=== PATIENT | female | born 1945 | race Caucasian/White ===

== ENCOUNTER 2017-10-17 15:45 | Inpatient (IN) ==
--- NOTE | 2017-10-17 16:03 | Emergency Department Note ---
Disposition Clinical Impression: Sinus pause Afib Qualifiers: Atrial fibrillation type: chronic Qualified Code(s): I48.2 - Chronic atrial fibrillation Chest pain Qualifiers: Chest pain type: unspecified Qualified Code(s): R07.9 - Chest pain, unspecified Disposition: Admitted As Inpatient Condition: Fair Referrals: Nathaniel Rodriguez DO [Primary Care Provider] - Forms: ED Satisfaction Letter Time of Disposition: 18:55 General Adult HPI - General Stated complaint: H/R Time Seen by Provider: 10/17/17 15:52 Source: patient Mode of arrival: EMS Limitations: no limitations Nursing Notes Reviewed: Yes Vital Signs Reviewed: Yes - History of Present Illness HPI Narrative: Female patient presenting to the emergency department complaining of feeling of a headache and that her heart was beating very fast. She has previously been on Cardizem however she states that it was for her blood pressure. Her heart rate came down significantly with that made her feel bad. She states it was running in the 50s. So she has been tapered off that over the past 3 months. She is now just taking lisinopril for blood pressure. She states she has no history of atrial fibrillation. She did have a heart catheter in January 2017 that was for any lesions that needed to be stented. She has no other history of PA. She does report a history of COPD and she is not on anticoagulation therapy other than aspirin daily. She does use a CPAP device at night for sleep apnea. She reports symptoms like this one week ago. She states that she was on her way to the hospital whenever they resolved so she went back home. She states that she does have a chest pressure associated with this. She initially stated that she had no symptoms however throughout my exam she states that she did have a heaviness sensation on the left side of her chest. No radiation. No associated shortness of breath. This all started after she was at home resting. She states that she is enjoying her day with no one else around. She denies any recent illnesses. States she has been eating and drinking appropriately. Does have a echocardiogram scheduled for this Monday. - Related Data Home Medications Medication Instructions Recorded Confirmed Diltiazem HCl [Diltiazem ER] 120 mg PO DAILY 11/23/15 01/18/17 Furosemide [Lasix] 20 mg PO 2XW 11/23/15 01/18/17 Potassium Chloride [Klor-Con 10] 10 meq PO 2XW 11/23/15 01/18/17 Tiotropium [Spiriva] 1 puff IH DAILY PRN 11/23/15 01/18/17 Aspirin [Lo-Dose Aspirin EC] 81 mg PO DAILY 01/18/17 01/18/17 Lisinopril [Zestril] 10 mg PO BID 01/18/17 01/18/17 Previous Rx's Medication Instructions Recorded Acetaminophen [Tylenol] 1,000 mg PO Q6HR PRN #0 tablet 12/14/15 Allergies Allergy/AdvReac Type Severity Reaction Status Date / Time No Known Allergies Allergy Verified 12/18/15 08:13 All systems ED: reviewed and negative except as stated. Review of Systems: As Per HPI Constitutional: Denies: fever Cardiovascular: Reports: chest pain (Pressure sensation to the left chest), palpitations. Denies: syncope Respiratory: Denies: cough, dyspnea Gastrointestinal: Denies: abdominal pain, nausea, vomiting, diarrhea Neurological: Reports: headache (Has resolved. Was associated with the elevated heart rate) Past Medical History - Past Medical History Attestation: Yes The following information was validated with the patient. Source: patient Medical history: Reports: asthma, COPD, GERD, hypertension Surgical history: Reports: appendectomy, hysterectomy, other Psychiatric history: Reports: no psych history, depression - Social History Smoking Status: Former smoker Smokeless Tobacco Status: No Alcohol use: Reports: none Drug use: Reports: none Physical Exam - General Limitations: no limitations General appearance: alert, in no apparent distress - Head Head exam: atraumatic, normocephalic, normal inspection - Eye Eye exam: Present: normal appearance, PERRL, EOMI - ENT ENT exam: normal exam, normal oropharynx, mucous membranes moist - Neck Neck exam: Present: normal inspection, full ROM, trachea midline - Chest Chest inspection: Present: normal inspection, symmetric chest wall rise - Respiratory Respiratory exam: Present: normal lung sounds bilaterally. Absent: respiratory distress, accessory muscle use - Cardiovascular Cardiovascular exam: Present: tachycardia, irregular rhythm, normal heart sounds - Abdominal Exam Abdominal exam: Present: soft, Non-Tender. Absent: tenderness, distention, guarding, rebound, rigidity, organomegaly - Extremities Exam Extremities exam: Present: normal inspection, full ROM, normal capillary refill. Absent: tenderness, pedal edema - Neurological Exam Neurological exam: Present: alert, oriented X3 - Psychiatric Psychiatric exam: Present: normal affect, normal mood - Skin Skin exam: Present: warm, dry, intact, normal color. Absent: rash, cyanosis, diaphoresis Course Course Narrative: Patient is in A. fib with RVR at this time. She did take a full dose aspirin prior to arrival here today. She does not appear to be in any distress. On initial exam she had no complaints however throughout my exam she states that she does have pressure sensation to the left chest. She does not appear to be in and wrist for distress. Lung tones are clear bilaterally. She has tachycardic on exam however. She did respond well to a Cardizem bolus. We will start dose her with by mouth Cardizem. We did do a chadsvasc score. She scored at a 3. This does recommend anticoagulation. We will continue workup on patient and admitted to the hospital. There are no signs of acute ischemia on her EKG. Patient is agreeable with admission at this time. Blood pressure has been stable throughout. - Reevaluation(s) Reevaluation #1: Was alerted by nursing staff that while they were in their having a discussion with the patient she said that she started to feel dizzy. They did notice a pars on the monitor. It does appears that the patient had approximally 6 second pause at that time. Repeat EKG was performed and showed the patient to still be in atrial fibrillation. We are awaiting callback from cardiology at this time. The patient did receive a Cardizem IV bolus as well as by mouth Cardizem. Patient's blood pressure is still within normal limits. Time: 17:35 Reevaluation #2: Patient has had several more sinus causes. Does appear that she is in a sinus rhythm at this time however. Her pressure has been staying normal with these pauses. With the patient. She has no complaints currently. She is cheerful and in good spirits. We did discuss CODE STATUS. She is requesting to be at this time. However she did express a desire to not be on long-term ventilation. We have started heparin. I did discuss any bleeding issues with her and she states she has no history of any kind of bleeding disorders or GI bleeds. - Consultations Consultation #1: I did talk to Dr. Camarillo on the phone. We discussed the patient's positives as well as her new onset A. fib. She states that she will discuss the case with the on-call interventionalists and give us a call back. She did recommend to go ahead and heparinize the patient. We have placed this order. Time: 18:00 Consultation #2: Exercise a call back. She is still requesting the patient be heparinized. She states that she will allow the Cardizem to wear off tonight and have the patient observed in either to North or ICU setting. Talk to Dr. Michaela Lara. They are both aware that the patient is here. They state that they will have the patient seen tomorrow after observing tonight with a possible pacemaker placed. Time: 18:19 Consultation #3: Dr Uribe accepted Pt in stable condition. Time: 18:54 Vital Signs Temperature 97.1 F L 10/17/17 15:58 Pulse Rate 157 10/17/17 15:58 Respiratory Rate 18 10/17/17 15:58 Blood Pressure 150/102 10/17/17 15:58 O2 Sat by Pulse Oximetry 98 10/17/17 15:58 Temperature 97.1 F L 10/17/17 15:58 Pulse Rate 57 10/17/17 18:53 Respiratory Rate 18 10/17/17 18:53 Blood Pressure 156/84 10/17/17 18:53 O2 Sat by Pulse Oximetry 100 10/17/17 18:53 Oxygen Delivery Oxygen Delivery Nasal Cannula Medical Decision Making - Medical Records Medical records reviewed: Yes I reviewed the patient's medical records. - Lab Data Lab results reviewed: Yes I reviewed the patient's lab results. Result diagrams: 10/17/17 18:12 10/17/17 16:04 Lab Results 10/17/17 10/17/17 10/17/17 Range/Units 16:04 16:04 16:04 WBC 7.8 (4.3-11.1) K/mcL RBC 4.97 (3.82-4.97) M/mcL Hgb 13.4 (11.5-15.4) g/dL Hct 41.7 (35.3-44.9) % MCV 83.9 (83.0-100.0) fL MCH 27.0 L (28.0-33.3) pg MCHC 32.1 (31.6-35.5) g/dL RDW 13.6 (11.5-14.5) % Plt Count 177 (140-400) K/mcL MPV 11.2 (9.4-12.4) fL Immature Gran % 0.3 (0-4) % Seg Neutrophils % 55.2 % Lymphocytes % 34.8 % Monocytes % 7.6 % Eosinophils % 1.2 % Basophils % 0.9 % Neutrophils # 4.3 (1.6-8.9) K/mcL Lymphocytes # 2.7 (0.6-4.6) K/mcL Monocytes # 0.6 (0.0-1.3) K/mcL Eosinophils # 0.1 (0.0-0.6) K/mcL Basophils # 0.1 (0.0-0.2) K/mcL PT 11.8 (9.4-12.1) Seconds INR 1.0 APTT 38.9 H (26.0-36.0) Seconds Heparin Anti-Xa, Unfract (0.30-0.70) IU/mL Sodium 143 (136-145) mEq/L Potassium 3.9 (3.5-5.1) mEq/L Chloride 108 H (98-107) mEq/L Carbon Dioxide 30 H (23-29) mEq/L BUN 10 (8-23) mg/dL Creatinine 0.54 L (0.60-1.20) mg/dL Est GFR ( Amer) > 60 (> 60) Est GFR (Non-Af Amer) > 60 (> 60) BUN/Creatinine Ratio 19 (6-26) Glucose 90 (70-105) mg/dL Calculated Osmolality 295 (280-300) Calcium 9.1 (8.6-10.3) mg/dL Troponin I < 0.03 (< 0.04) ng/mL TSH 1.990 (0.340-5.600) mcIU/mL 10/17/17 10/17/17 Range/Units 18:12 18:12 WBC 9.2 (4.3-11.1) K/mcL RBC 5.00 H (3.82-4.97) M/mcL Hgb 13.7 (11.5-15.4) g/dL Hct 42.4 (35.3-44.9) % MCV 84.8 (83.0-100.0) fL MCH 27.4 L (28.0-33.3) pg MCHC 32.3 (31.6-35.5) g/dL RDW 13.4 (11.5-14.5) % Plt Count 177 (140-400) K/mcL MPV 11.2 (9.4-12.4) fL Immature Gran % (0-4) % Seg Neutrophils % % Lymphocytes % % Monocytes % % Eosinophils % % Basophils % % Neutrophils # (1.6-8.9) K/mcL Lymphocytes # (0.6-4.6) K/mcL Monocytes # (0.0-1.3) K/mcL Eosinophils # (0.0-0.6) K/mcL Basophils # (0.0-0.2) K/mcL PT 11.8 (9.4-12.1) Seconds INR 1.0 APTT (26.0-36.0) Seconds Heparin Anti-Xa, Unfract 0.02 L (0.30-0.70) IU/mL Sodium (136-145) mEq/L Potassium (3.5-5.1) mEq/L Chloride (98-107) mEq/L Carbon Dioxide (23-29) mEq/L BUN (8-23) mg/dL Creatinine (0.60-1.20) mg/dL Est GFR ( Amer) (> 60) Est GFR (Non-Af Amer) (> 60) BUN/Creatinine Ratio (6-26) Glucose (70-105) mg/dL Calculated Osmolality (280-300) Calcium (8.6-10.3) mg/dL Troponin I (< 0.04) ng/mL TSH (0.340-5.600) mcIU/mL - Radiology Data Radiology results reviewed: Yes I reviewed the patient's radiology results. I did review the patient's x-ray and agree with the radiology read. The patient does have an opacification on the right hilar area that was on previously chest x-rays as well. Chest X-Ray 10/17/17 16:04 IMPRESSION: 1.Cardiomegaly with mild vascular congestion. D/ / Niels Dillard MD / Niels Dillard MD Interpreting Provider: Niels Dillard MD - EKG Data EKG #1 EKG attestation: Yes I reviewed and interpreted this EKG. EKG results narrative: A. fib with RVR at a rate of 165. MO interval was not measured. QRS duration is 155. QT is 307. QTC is 509. Good R-wave progression. Patient does have some ST depressions in lead V2 V4 and V5. EKG #2 EKG attestation: Yes I reviewed and interpreted this EKG. EKG results narrative: Repeat EKG time 1648. A. fib at a rate of 107. QRS duration is 103. QT is 355. QTC is 474. Patient does have some mild ST depression in lead V4 and V5. No signs of acute ischemia. EKG #3 EKG attestation: Yes I reviewed and interpreted this EKG. EKG results narrative: EKG timed 1754. Patient is now in a sinus bradycardia at a rate of 56. MO interval is 159. QRS duration is 97. QT is 4:30. QTC is 389. No signs of ischemia. Attestation Statement - Attestation Attestation: I, Adalberto Castillo DO, examined this patient [id number] and my medical decision-making was reviewed with Dr. Hayley Knox, Resident Physician. I agree with the documented findings, disposition and treatment plan as described except to the extent set forth below. Please see my progress notes for details.
[2017-10-17] MEDS ORDERED: 0.9 % Sodium Chloride 500 ML IVC ONE (16:24)
[2017-10-17 16:45] LABS: Basophils # 0.1 K/mcL (0.0-0.2); Basophils % 0.9 %; Eosinophils # 0.1 K/mcL (0.0-0.6); Eosinophils % 1.2 %; Hematocrit 41.7 % (35.3-44.9); Hemoglobin 13.4 g/dL (11.5-15.4); Immature Granulocytes % 0.3 % (0-4); Lymphocytes # 2.7 K/mcL (0.6-4.6); Lymphocytes % 34.8 %; Mean Corpuscular HGB Conc 32.1 g/dL (31.6-35.5); Mean Corpuscular Volume 83.9 fL (83.0-100.0); Mean Platelet Volume 11.2 fL (9.4-12.4); Monocytes # 0.6 K/mcL (0.0-1.3); Monocytes % 7.6 %; Neutrophils # 4.3 K/mcL (1.6-8.9); Platelet Count 177 K/mcL (140-400); Red Blood Count 4.97 M/mcL (3.82-4.97); Red Cell Distribution Width 13.6 % (11.5-14.5); Segmented Neutrophils % 55.2 %
[2017-10-17] MEDS ORDERED: Diltiazem CD (24hr) 120 MG CAPSULE PO STA (16:45)
[2017-10-17 16:51] LABS: Prothrombin Time 11.8 Seconds (9.4-12.1)
[2017-10-17 16:54] LABS: Activated Partial Thrombo Time 38.9 Seconds (26.0-36.0)
[2017-10-17 17:04] LABS: BUN/Creatinine Ratio 19 (6-26); Blood Urea Nitrogen 10 mg/dL (8-23); Calcium 9.1 mg/dL (8.6-10.3); Carbon Dioxide 30 mEq/L (23-29); Chloride 108 mEq/L (98-107); Glucose 90 mg/dL (70-105); Osmolality,Calculated 295 (280-300); Potassium 3.9 mEq/L (3.5-5.1); Sodium 143 mEq/L (136-145); Troponin I < 0.03 ng/mL (< 0.04); eGFR For Non-African Americans > 60 (> 60)
--- NOTE | 2017-10-17 17:31 | Emergency Department Note ---
Disposition Clinical Impression: Sinus pause Afib Qualifiers: Atrial fibrillation type: chronic Qualified Code(s): I48.2 - Chronic atrial fibrillation Chest pain Qualifiers: Chest pain type: unspecified Qualified Code(s): R07.9 - Chest pain, unspecified Disposition: Admitted As Inpatient Condition: Fair Referrals: Nathaniel Rodriguez DO [Primary Care Provider] - Forms: ED Satisfaction Letter Time of Disposition: 18:58 General Adult HPI - General Chief complaint: ED Recheck/Abnormal Lab/Rx Stated complaint: H/R Time Seen by Provider: 10/17/17 15:52 Source: patient Mode of arrival: EMS Limitations: no limitations - History of Present Illness Pain Scale: 0 - Related Data Home Medications Medication Instructions Recorded Confirmed Diltiazem HCl [Diltiazem ER] 120 mg PO DAILY 11/23/15 01/18/17 Furosemide [Lasix] 20 mg PO 2XW 11/23/15 01/18/17 Potassium Chloride [Klor-Con 10] 10 meq PO 2XW 11/23/15 01/18/17 Tiotropium [Spiriva] 1 puff IH DAILY PRN 11/23/15 01/18/17 Aspirin [Lo-Dose Aspirin EC] 81 mg PO DAILY 01/18/17 01/18/17 Lisinopril [Zestril] 10 mg PO BID 01/18/17 01/18/17 Previous Rx's Medication Instructions Recorded Acetaminophen [Tylenol] 1,000 mg PO Q6HR PRN #0 tablet 12/14/15 Allergies Allergy/AdvReac Type Severity Reaction Status Date / Time No Known Allergies Allergy Verified 12/18/15 08:13 Constitutional: Denies: fever Cardiovascular: Reports: chest pain (Pressure sensation to the left chest), palpitations. Denies: syncope Respiratory: Denies: cough, dyspnea Gastrointestinal: Denies: abdominal pain, nausea, vomiting, diarrhea Neurological: Reports: headache (Has resolved. Was associated with the elevated heart rate) Past Medical History - Past Medical History Medical history: Reports: asthma, COPD, GERD, hypertension Surgical history: Reports: appendectomy, hysterectomy, other Psychiatric history: Reports: no psych history, depression - Social History Smoking Status: Former smoker Smokeless Tobacco Status: No Alcohol use: Reports: none Drug use: Reports: none Physical Exam - General Limitations: no limitations General appearance: alert, in no apparent distress Course Vital Signs Temperature 97.1 F L 10/17/17 15:58 Pulse Rate 157 10/17/17 15:58 Respiratory Rate 18 10/17/17 15:58 Blood Pressure 150/102 10/17/17 15:58 O2 Sat by Pulse Oximetry 98 10/17/17 15:58 Temperature 97.1 F L 10/17/17 15:58 Pulse Rate 57 10/17/17 18:53 Respiratory Rate 18 10/17/17 18:53 Blood Pressure 156/84 10/17/17 18:53 O2 Sat by Pulse Oximetry 100 10/17/17 18:53 Oxygen Delivery Oxygen Delivery Nasal Cannula Medical Decision Making - Lab Data Result diagrams: 10/17/17 18:12 10/17/17 16:04 Lab Results 10/17/17 10/17/17 10/17/17 Range/Units 16:04 16:04 16:04 WBC 7.8 (4.3-11.1) K/mcL RBC 4.97 (3.82-4.97) M/mcL Hgb 13.4 (11.5-15.4) g/dL Hct 41.7 (35.3-44.9) % MCV 83.9 (83.0-100.0) fL MCH 27.0 L (28.0-33.3) pg MCHC 32.1 (31.6-35.5) g/dL RDW 13.6 (11.5-14.5) % Plt Count 177 (140-400) K/mcL MPV 11.2 (9.4-12.4) fL Immature Gran % 0.3 (0-4) % Seg Neutrophils % 55.2 % Lymphocytes % 34.8 % Monocytes % 7.6 % Eosinophils % 1.2 % Basophils % 0.9 % Neutrophils # 4.3 (1.6-8.9) K/mcL Lymphocytes # 2.7 (0.6-4.6) K/mcL Monocytes # 0.6 (0.0-1.3) K/mcL Eosinophils # 0.1 (0.0-0.6) K/mcL Basophils # 0.1 (0.0-0.2) K/mcL PT 11.8 (9.4-12.1) Seconds INR 1.0 APTT 38.9 H (26.0-36.0) Seconds Heparin Anti-Xa, Unfract (0.30-0.70) IU/mL Sodium 143 (136-145) mEq/L Potassium 3.9 (3.5-5.1) mEq/L Chloride 108 H (98-107) mEq/L Carbon Dioxide 30 H (23-29) mEq/L BUN 10 (8-23) mg/dL Creatinine 0.54 L (0.60-1.20) mg/dL Est GFR ( Amer) > 60 (> 60) Est GFR (Non-Af Amer) > 60 (> 60) BUN/Creatinine Ratio 19 (6-26) Glucose 90 (70-105) mg/dL Calculated Osmolality 295 (280-300) Calcium 9.1 (8.6-10.3) mg/dL Troponin I < 0.03 (< 0.04) ng/mL TSH 1.990 (0.340-5.600) mcIU/mL 10/17/17 10/17/17 Range/Units 18:12 18:12 WBC 9.2 (4.3-11.1) K/mcL RBC 5.00 H (3.82-4.97) M/mcL Hgb 13.7 (11.5-15.4) g/dL Hct 42.4 (35.3-44.9) % MCV 84.8 (83.0-100.0) fL MCH 27.4 L (28.0-33.3) pg MCHC 32.3 (31.6-35.5) g/dL RDW 13.4 (11.5-14.5) % Plt Count 177 (140-400) K/mcL MPV 11.2 (9.4-12.4) fL Immature Gran % (0-4) % Seg Neutrophils % % Lymphocytes % % Monocytes % % Eosinophils % % Basophils % % Neutrophils # (1.6-8.9) K/mcL Lymphocytes # (0.6-4.6) K/mcL Monocytes # (0.0-1.3) K/mcL Eosinophils # (0.0-0.6) K/mcL Basophils # (0.0-0.2) K/mcL PT 11.8 (9.4-12.1) Seconds INR 1.0 APTT (26.0-36.0) Seconds Heparin Anti-Xa, Unfract 0.02 L (0.30-0.70) IU/mL Sodium (136-145) mEq/L Potassium (3.5-5.1) mEq/L Chloride (98-107) mEq/L Carbon Dioxide (23-29) mEq/L BUN (8-23) mg/dL Creatinine (0.60-1.20) mg/dL Est GFR ( Amer) (> 60) Est GFR (Non-Af Amer) (> 60) BUN/Creatinine Ratio (6-26) Glucose (70-105) mg/dL Calculated Osmolality (280-300) Calcium (8.6-10.3) mg/dL Troponin I (< 0.04) ng/mL TSH (0.340-5.600) mcIU/mL Critical Care Time Critical Care Time: Yes Total Critical Care Time: 45 Attestation: Critical care performed: Time is exclusive of separately billable procedures. Time includes: direct patient care, patient reassessment, coordination of patient care, interpretation of data (laboratory data, radiology data, and respiratory data), review of patient's medical records, medical consultation and documentation of patient care. Procedures included in critical care time: Procedures excluded from critical care time: Attestation Statement - Attestation Attestation: I, Adalberto Castillo DO, examined this patient [id number] and my medical decision-making was reviewed with Dr. Hayley Knox, Resident Physician. I agree with the documented findings, disposition and treatment plan as described except to the extent set forth below. Please see my progress notes for details. 72-year-old female presents emergency room with complaint of palpitations and blood pressure abnormality. Patient was at home said that she is feeling abnormal so she checked her blood pressure and noticed that the numbers were very close together and she is concerned about a possible stroke. She remembers being told that when she was younger. She denies any neurologic symptoms or complaints. She has no chest pain and intermittent shortness of breath denies any nausea vomiting or diarrhea. Denies any fevers or chills. She has not had any medication changes or other issues here recently. Patient is scheduled to have an echocardiogram completed this Monday for unknown cardiac related issue at this time. Vital signs otherwise unremarkable as the patient does have tachycardia on exam. EKG is consistent with atrial fibrillation with rapid ventricular response. Patient's heart rate will be addressed. Blood pressure is otherwise stable. Lungs are clear to auscultation heart is regular abdomen is soft nontender nondistended with no guarding no rigidity no peritoneal symptoms. She is alert she is she speaks in full sentences. On my evaluation at the bedside, the patient is requesting to be discharged home in the care of the . A lengthy discussion about concerns with the cardiac related abnormality as well as a regular rhythm that were noted on initial presentation. Patient has now accommodating for workup and evaluation here in the emergency room then will determine disposition. There is concern for a requirement of anticoagulation and possibility of new onset A. fib considering the patient does not have any specific history of atrial fibrillation. Patient is otherwise hemodynamically stable and in no distress disposition will be determined once full workup treatment course have been established. See detailed documentation the physical exam, medical intervention, medical decision-making and disposition in the resident physician' s note. Critical care by the patient's treatment course at this time. 1745 Patient has had 2 episodes approximate 6-10 second pauses of cardiac rhythm. On the second event the patient converted into sinus bradycardia. Cardiology was contacted for recommendations patient will require admission for currently there is no acute etiology to be the source to the symptoms of this time. Patient had the pacer pads applied to the chest wall and atropine was ordered to the bedside. Disposition will be admission once treatment course has been established. 1845 Detailed workup completed. Consultation with cardiology as well as the hospitals established. Recommendation for heparin drip and admission process were discussed and reviewed with the hospitalist about any other question or concern. Patient will be admitted for definitive management.
[2017-10-17] MEDS ORDERED: *HR* Heparin 5,000 UNIT/ML VIAL IVP ONE (17:54)
[2017-10-17] MEDS ORDERED: *HR* Heparin 5,000 UNIT/ML VIAL IVP PRN ×4 (17:54→21:51)
[2017-10-17] MEDS ORDERED: *HR* Atropine Sulfate 1 MG/10 ML SYRINGE ONE (17:55)
[2017-10-17] MEDS ORDERED: Heparin 25,000 UNIT/500 ML D5W 25,000 UNIT/500 ML BAG IVC SCH (18:00)
[2017-10-17 18:22] LABS: Hematocrit 42.4 % (35.3-44.9); Hemoglobin 13.7 g/dL (11.5-15.4); Mean Corpuscular HGB Conc 32.3 g/dL (31.6-35.5); Mean Corpuscular Hemoglobin 27.4 pg (28.0-33.3); Mean Corpuscular Volume 84.8 fL (83.0-100.0); Mean Platelet Volume 11.2 fL (9.4-12.4); Platelet Count 177 K/mcL (140-400); Red Cell Distribution Width 13.4 % (11.5-14.5)
[2017-10-17 18:28] LABS: Heparin anti-factor XA UFH 0.02 IU/mL (0.30-0.70)
[2017-10-17 18:29] LABS: Prothrombin Time 11.8 Seconds (9.4-12.1)
--- NOTE | 2017-10-17 19:29 | Internal Med History&Physical ---
<Lenny Russell - Last Filed: 10/17/17 21:45> Date of Encounter: 10/17/17 Time of Encounter: 19:26 Internal Medicine - H&P: HPI Chief complaint: Palpitations Admitted From: Home Plans for Post Hospital Care: Home History of present illness: Ms. Grove is a 72 year old female with a PMH of sinus bradycardia, hypertension, HLD, COPD, GERD, and DAYLIN who presented to the ED due to palpitations and headache. Patient reported her BP was 150/79 at home and her HR is usually in the 50s. Patient reports occasional chest pressure but denies fevers, chills, shortness of breath, nausea, vomiting, diarrhea, melena, or any recent medication changes. Patient does not have a history of atrial fibrillation. She reports being on Diltiazem in the past which caused episodes of worsening bradycardia to the point that "it almost killed her". In the ED, her EKG revealed atrial fibrillation with rapid ventricular response. Patient was treated with PO and IV Cardizem and had two episodes approximate 6-10 second pauses on telemetry. During the second event, the patient converted into sinus bradycardia. Cardiology was contacted, who recommended admission to determine the underlying etiology and anticoagulating on Heparin drip. Of note, patient was previously scheduled to have an echocardiogram completed on Monday for history of sinus bradycardia. Patient had pacer pads applied to her chest in the ED and Atropine was ordered to the bedside. Past Med Surg Social Fam HX - Past Medical History Medical history: asthma, COPD, GERD, hyperlipidemia, hypertension, other (DAYLIN on CPAP) Psychiatric history: no psych history, depression - Past Surgical History Surgical History: appendectomy, hysterectomy, other Additional surgical history: t&A. appy. bladder tuck. hysterectomy. Cardiac Cath. by Dr. Sandy Walters. LMCA is free of disease. LAD shows 25% stenosis in the Mid LAD. Distal Circumflex 40% Stenosis. RCA 25% Stenosis. 01/18/2017 - Social History Smoking Status: Former smoker Smokeless Tobacco Status: No Alcohol use: none Drug use: none - Family History Father Living Status: Hx Family Cardiac Disorders: Yes Mother Living Status: Cause of : PNA Brother Living Status: Hx Family Cardiac Disorders: Yes Hx Family Cancer: Yes (Colon) Sister Living Status: Hx Family Cardiac Disorders: Yes (MO) Hx Family Endocrine Disorder: Yes (DM) Hx Family Neurologic Disorders: Yes (CVA) Hx Family Medical Disorders: Yes (Renal failure) Son Hx Family Cardiac Disorders: Yes (HTN) Internal Medicine - H&P: Meds Furosemide [Lasix] 20 mg PO 2XW 11/23/15 [History] Potassium Chloride [Klor-Con 10] 10 meq PO 2XW 11/23/15 [History] Aspirin [Lo-Dose Aspirin EC] 81 mg PO DAILY 01/18/17 [History] Lisinopril [Zestril] 10 mg PO BID 01/18/17 [History] Albuterol Sulfate [Proair Hfa] 2 puff IH BID PRN 10/17/17 [History] Cholecalciferol (D-3) [Vitamin D] 2,000 unit PO DAILY 10/17/17 [History] Cyanocobalamin (Vitamin B-12) [Vitamin B12] 1,000 mcg PO QWEEK 10/17/17 [History ] Montelukast [Singulair] 10 mg PO DAILY 10/17/17 [History] 3 Allergy/AdvReac Type Severity Reaction Status Date / Time diltiazem AdvReac See Verified 10/17/17 19:34 Comments All Systems PM: A 10-system review of systems was performed and is negative for pertinent findings except as documented above in the HPI. - Constitutional Constitutional: fatigue, malaise, weakness, no chills, no fever(s), no lethargy , no weight gain, no weight loss - EENT Eyes: no blurry vision, no change in vision Nose, mouth and throat: no neck pain, no sinus pain, no sore throat - Cardiovascular Cardiovascular ROS IM: chest pain, irregular heart rhythm, palpitations, no diaphoresis, no dyspnea, no edema, no lightheadedness, no syncope - Respiratory Respiratory: no cough, no dyspnea, no wheezing - Gastrointestinal Gastrointestinal: heartburn, no abdominal pain, no constipation, no diarrhea, no nausea, no vomiting - Genitourinary Genitourinary: no dysuria, no urinary frequency, no urinary urgency - Musculoskeletal Musculoskeletal ROS IM: no back pain, no limited range of motion, no numbness, no tingling - Integumentary Integumentary IM: no erythema, no new lesions, no rash - Neurological Neurological ROS: headache(s), weakness, no confusion, no dizziness, no numbness , no tingling, no tremor(s) - Psychiatric Psychiatric: no anxiety, no depression - Endocrine Endocrine IM: no polydipsia, no polyphagia, no polyuria - Hematologic/Lymphatic Hematologic/Lymphatic: no easy bleeding, no easy bruising - Constitutional Vitals: Temp Pulse Resp BP Pulse Ox 97.1 F L 57 18 156/84 100 10/17/17 15:58 10/17/17 18:53 10/17/17 18:53 10/17/17 18:53 10/17/17 18:53 General appearance: Present: cooperative, A&O X 3, pleasant, obese, answers questions appropriately Exam: appears as stated age, conversant - Head Head exam: Present: atraumatic, normocephalic - Eye Eye exam: Present: EOMI, conjuntiva pink, sclera anicteric - ENT ENT exam: Present: mucous membranes moist, normal oropharynx - Neck Neck exam general surgery: Present: supple, trachea midline. Absent: lymphadenopathy - Respiratory Respiratory exam: Present: CTAB. Absent: accessory muscle use, rales, respiratory distress, rhonchi, wheezes - Cardiovascular Cardiovascular exam: Present: bradycardia, RRR, +S1, +S2. Absent: diastolic murmur, gallop, rubs, systolic murmur - GI/Abdominal GI/Abdominal exam: Present: normal bowel sounds, soft, no peritoneal signs. Absent: distended, guarding, hepatomegaly, tenderness - Extremities Exam Extremities exam: Present: normal capillary refill, normal inspection, warm, radial pulses palpable and symmetrical. Absent: calf tenderness, cyanotic, pedal edema - Back Exam Back exam: Present: normal inspection. Absent: paraspinal tenderness, tenderness - Neurological Exam Neurological exam: Present: CN II-XII intact, oriented X3, no focal deficits. Absent: pronater drift, facial droop, speech deficit - Psychiatric Psychiatric exam: Present: normal affect, normal mood - Skin Skin exam: Present: dry, intact, normal color, warm Internal Med - H&P Results - Labs CBC & Chem 7: 10/17/17 18:12 10/17/17 16:04 - Pulse Oximetry Interpretation Digit-Finger O2 Sat by Pulse Oximetry: 96 (On room air) - EKG Data -: EKG Interpreted by Myself (A-fib HR 165, ST depressions in lead V2 V4 and V5) - EKG Data Prior EKG available for review: yes When compared to previous EKG: there are significant changes (Repeat EKG shows sinus bradycardia HR 56, R interval is 159. QRS duration is 97. QT is 4:30. QTC is 389. No signs of ischemia) - Impressions Impressions Chest X-Ray 10/17/17 16:04 IMPRESSION: 1.Cardiomegaly with mild vascular congestion. D/ / Niels Dillard MD / Niels Dillard MD Interpreting Provider: Niels Dillard MD - Assessment and plan (1) Atrial fibrillation with RVR Current Visit: Yes Status: Resolved Assessment and plan: New onset A. fib, patient does not have a history of atrial fibrillation. In the ED, her EKG revealed atrial fibrillation with rapid ventricular response. Patient was treated with PO and IV Cardizem CHADS-VASc Score 3 (Female, Age 72, and HTN) Patient was started on Heparin drip Consider changing to Coumadin or starting NOAC Echo pending Cardiac Cath. by Dr. Walters 01/18/2017 revealed LMCA is free of disease, LAD shows 25% stenosis in the Mid LAD, Distal Circumflex 40% Stenosis, RCA 25% Stenosis. Cardiology consulted (2) Sinus pause Current Visit: Yes Status: Acute Assessment and plan: In the ED, EKG revealed atrial fibrillation with rapid ventricular response. Patient was treated with PO and IV Cardizem and had two episodes approximate 6- 10 second pauses on telemetry. During the second event, the patient converted into sinus bradycardia. Cardiology was contacted by ED physician, who recommended admission for further evaluation. Initial troponin negative, trend serial troponins Echo pending, patient was previously scheduled to have an echocardiogram completed on Monday for history of sinus bradycardia. Patient had pacer pads applied to her chest in the ED and Atropine was ordered to the bedside. Cardiology consulted (3) HTN (hypertension) Current Visit: Yes Status: Chronic Assessment and plan: Patient takes Lisinopril 10mg BID and Lasix 20mg at home Unable to start beta delfino due to bradycardia Cardiology consulted Qualifiers: Hypertension type: essential hypertension Qualified Code(s): I10 - Essential (primary) hypertension (4) HLD (hyperlipidemia) Current Visit: Yes Status: Chronic Assessment and plan: Lipid panel 09/23/17 revealed chol 198, LDL 117, HDL 67, chol/HDL ratio 3 Based patient's age and calculated risk for heart disease or stroke 25.7%, the ACC/AHA guidelines suggest she should be on a moderate to high intensity statin. Start Atorvastatin 40mg PO qHS Qualifiers: Hyperlipidemia type: unspecified Qualified Code(s): E78.5 - Hyperlipidemia , unspecified (5) DAYLIN on CPAP Current Visit: Yes Status: Chronic Assessment and plan: Continue CPAP qHS (6) Obesity (BMI 30.0-34.9) Current Visit: Yes Status: Chronic Assessment and plan: BMI 33.5, Lifestyle modification (7) DVT prophylaxis Current Visit: Yes Status: Acute Assessment and plan: Patient was started on Heparin drip Consider changing to Coumadin or starting NOAC (8) COPD (chronic obstructive pulmonary disease) Current Visit: No Status: Chronic Assessment and plan: Not in acute exacerbation Patient quit smoking 20 years ago Continue home bronchodilators She is scheduled for outpatient PFTs Qualifiers: COPD type: unspecified COPD Qualified Code(s): J44.9 - Chronic obstructive pulmonary disease, unspecified - Time Spent With Patient Total time spent is greater than 50% in coordination of care (as documented) at patient's floor/unit and/or counseling patient: <Farideh Mena - Last Filed: 10/17/17 22:20> Date of Encounter: 10/17/17 Internal Medicine - H&P: HPI History of present illness: Ms. Grove is a 72 year old female All Systems PM: A 10-system review of systems was performed and is negative for pertinent findings except as documented above in the HPI. - Constitutional Vitals: Temp Pulse Resp BP Pulse Ox 97.9 F 54 18 152/79 96 10/17/17 19:50 10/17/17 22:00 10/17/17 22:00 10/17/17 21:06 10/17/17 22:00 Internal Med - H&P Results - Labs CBC & Chem 7: 10/17/17 18:12 10/17/17 16:04 Labs: Cardiac Enzymes 10/17/17 Range/Units 21:10 Troponin I 0.03 (< 0.04) ng/mL - Assessment and plan (1) Sinus pause Current Visit: Yes Status: Acute (2) Atrial fibrillation with RVR Current Visit: Yes Status: Resolved (3) HTN (hypertension) Current Visit: Yes Status: Chronic Qualifiers: Hypertension type: essential hypertension Qualified Code(s): I10 - Essential (primary) hypertension (4) Obesity (BMI 30.0-34.9) Current Visit: Yes Status: Chronic (5) DVT prophylaxis Current Visit: Yes Status: Acute (6) DAYLIN on CPAP Current Visit: Yes Status: Chronic (7) HLD (hyperlipidemia) Current Visit: Yes Status: Chronic Qualifiers: Hyperlipidemia type: unspecified Qualified Code(s): E78.5 - Hyperlipidemia , unspecified (8) COPD (chronic obstructive pulmonary disease) Current Visit: No Status: Chronic Qualifiers: COPD type: unspecified COPD Qualified Code(s): J44.9 - Chronic obstructive pulmonary disease, unspecified - Time Spent With Patient Total time spent is greater than 50% in coordination of care (as documented) at patient's floor/unit and/or counseling patient: - Attending Attestation [place] Jeanette Grove is a 72 burt old woman with a history of HTN, HLD, DM, pHTN and DAYLIN who presents to the ER with the complaint of sudden onset of palpitations and headache this afternoon. She thought she was having a stroke and checked her BP saying it was high and her heart rate was in the 150s. On arrival here she was seen to be in a.fib with RVR. She was given 15mg IVP of diltiazem followed by 120mg PO dose. She was then seen to become bradycardic and developed 6-10 second sinus pauses. Pacer pads were placed, cardiology consulted and is admitted for evaluation. On my assessment the patient was in no acute distress, stating that she feels well and her complaints have subsided. She states to me that a year ago she was prescribed diltiazem and it made her extremely bradycardic so it was discontinued and never took it since. She denies knowledge of a.fib in the past. Physical exam remarkable for a well-developed white woman laying comfortably in bed. Normal s1/s2 and no murmurs or gallop rhythm. No peripheral edema. Pulses present and synchronic. No pulse deficit. CXR reviewed independently by me and showing mild perihilar congestion. Will manage as new onset atrial fibrillation; continue heparin gtt ([id number]- Vasc score 3). Monitor on telemetry. Obtain another set of troponins and check BNP. Sinus pauses; likely due to effect of diltiazem as the patient has experienced this in the past suggesting a hypersusceptibility to the drug. Will ensure her HR stays above 40 and activate pacing if it goes below; will administer IV calcium if needed. Should get another echo in the morning and cardio evaluation. Old records reviewed showed a normal EF on TTE from December 2016 and a cardiac cath showing: LMCA angiographically free of disease, 25% LAD stenosis, 40% distal Cx stenosis and 25% mid RCA disease. CPAP ordered qhs for DAYLIN.
[2017-10-17] MEDS ORDERED: Naloxone 0.4 MG/ML INJ IVP PRN (20:42)
[2017-10-17] MEDS ORDERED: Ondansetron 4 MG/2 ML VIAL IVP PRN ×2 (20:42→21:51)
[2017-10-17] MEDS ORDERED: Acetaminophen 325 MG TABLET PO PRN ×2 (20:42→21:51)
[2017-10-17] MEDS ORDERED: Ipratropium/Albuterol Neb 3 ML IH PRN ×2 (20:53→21:51)
[2017-10-17] MEDS ORDERED: *HR* Atropine Sulfate 1 MG/10 ML SYRINGE IVP PRN ×2 (21:12→21:51)
[2017-10-17] MEDS ORDERED: Cyanocobalamin (B-12) 1,000 MCG TABLET PO SCH ×2 (21:15→21:51)
[2017-10-17 21:42] LABS: Magnesium 2.1 mg/dL (1.6-2.6)
[2017-10-17 21:50] LABS: Troponin I 0.03 ng/mL (< 0.04)
[2017-10-17] MEDS: Heparin 25,000 UNIT/500 ML D5W 25,000 UNIT/500 ML BAG IVC SCH (22:07)
[2017-10-18 03:10] LABS: Hematocrit 38.5 % (35.3-44.9); Hemoglobin 12.3 g/dL (11.5-15.4); Mean Corpuscular HGB Conc 31.9 g/dL (31.6-35.5); Mean Corpuscular Hemoglobin 26.9 pg (28.0-33.3); Mean Corpuscular Volume 84.1 fL (83.0-100.0); Mean Platelet Volume 11.4 fL (9.4-12.4); Platelet Count 163 K/mcL (140-400); Red Blood Count 4.58 M/mcL (3.82-4.97); Red Cell Distribution Width 13.8 % (11.5-14.5)
[2017-10-18 03:38] LABS: BUN/Creatinine Ratio 20 (6-26); Blood Urea Nitrogen 10 mg/dL (8-23); Calcium 8.8 mg/dL (8.6-10.3); Carbon Dioxide 25 mEq/L (23-29); Chloride 110 mEq/L (98-107); Glucose 102 mg/dL (70-105); Osmolality,Calculated 293 (280-300); Potassium 3.9 mEq/L (3.5-5.1); Sodium 142 mEq/L (136-145); eGFR For Non-African Americans > 60 (> 60)
[2017-10-18] MEDS: Cholecalciferol (D-3) 1,000 UNIT TABLET PO SCH (08:02)
[2017-10-18] MEDS: Aspirin Enteric Coated 81 MG Tablet PO SCH (08:03)
[2017-10-18] MEDS ORDERED: Aspirin Enteric Coated 81 MG Tablet PO SCH (09:00)
[2017-10-18] MEDS ORDERED: Cholecalciferol (D-3) 1,000 UNIT TABLET PO SCH (09:00)
--- NOTE | 2017-10-18 09:16 | Electrocardiograph Report ---
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
--- NOTE | 2017-10-18 09:20 | Electrocardiograph Report ---
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
--- NOTE | 2017-10-18 09:21 | Electrocardiograph Report ---
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
--- NOTE | 2017-10-18 09:23 | Electrocardiograph Report ---
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
[2017-10-18] MEDS ORDERED: CeFAZolin Syr 2,000MG/20 ML 2,000 MG/20 ML SYRINGE IVPB ONE (11:35)
--- NOTE | 2017-10-18 12:28 | Cardiology Consult Note ---
Date of Encounter: 10/18/17 Time of Encounter: 10:00 Assessment and Plan (1) Tachy-humaira syndrome Current Visit: Yes Status: Acute Patient with newly diagnosed afib,- she might have been in paroxysmal afib for at least a month, maybe longer. Admitted to ICU with rapid ventricular response , now in sinus bradycardia following 6.8s symptomatic conversion pause. Her feelings of fatigue may have been due to afib, and lightheadedness from a sick sinus. She is a candidate for permanent pacemaker to allow for use of rate control medications for tachyarrhytmia. (2) Atrial fibrillation Current Visit: Yes Status: Acute Patient is currently rate controlled, infact, bradycardic. She will however need rate control medications after PPM implantation. Echo shows normal EF and no significant valvular heart disease. She can be placed on Cardizem 120mg daily upon dismissal to a target heart rate of 70-90/ min. Her [id number] score is 4, which translates to a stoke risk of 4.8% per year in >90,000 patients (in the [place] Atrial Fibrillation Cohort Study) and a 6.7 % risk of stroke TIA or systemic embolism. Her HAS-BLED score is 2 ( risk of major bleeding approx. 2/100 patient-years. In light of the foregoing, patient was counseled on the risk and benefits of oral anticoagulation and she stated that she would like to proceed with anticoagulation as she would never want to have a stroke. She understands the risk of bleeding with anticoagulation. We recommend chronic oral anticoagulation with apixaban 5mg bid once cleared by EP after PPM implantation. Meanwhile, continue IV heparin to therapeutic PTT till tomorrow morning- to be discontinued 4hrs prior to procedure. NPO after midnight. Qualifiers: Atrial fibrillation type: paroxysmal Qualified Code(s): I48.0 - Paroxysmal atrial fibrillation Discussion w patient/family: The assessment and plan as outlined above was discussed with the patient and/or family members who expressed understanding and agreement. All questions were answered. Thank you for involving us in the care of your patient. Please call with any questions. History of Present Illness Consult date: 10/18/17 History of present illness: Ms. Grove is a 72 year old pleasant female who presented to the ER with palpitations and found to have afib with RVR. She has a history of sleep apnea, hypertension, diabetes, and known palpitations on Cardizem.She states that she had an episode of fast heart rate about a month ago, but before she could present to the ER, she started feeling normal again. She however reports that she has been feeling more tired lately with occasional lightheadedness. She has not been formally diagnosed with afib before. In the ER she received cardizem 15mg IV and 120mg PO, afterwards she converted to sinus rhythm preceeded by a 6.8s pause and then 2.4s pause. She reports feeling dizzy during the pause. Howver she converted to sinus bradycardia with heart rates in the high 40s - low 50s Her last cardiology visit with Dr Walters was late in 2017 when she had an echocardiogram which is unremarkable with a preserved ejection fraction as well as a stress test showing no reversible ischemia with preserved ejection fraction. Holter monitor showed some runs of likely atrial tachycardia with a lowest heart rate of 45 and average of 80bpm She did receive coronary angiogram on 01/18/2017 which showed 25% stenosis in the Mid LAD. Distal Circumflex 40% Stenosis. RCA 25% Stenosis. Past Med Surg Social Fam HX - Past Medical History Medical history: asthma, COPD, GERD, hyperlipidemia, hypertension, other Psychiatric history: depression - Past Surgical History Surgical History: appendectomy, hysterectomy, other Additional surgical history: t&A. appy. bladder tuck. hysterectomy. Cardiac Cath. by Dr. Sandy Walters. LMCA is free of disease. LAD shows 25% stenosis in the Mid LAD. Distal Circumflex 40% Stenosis. RCA 25% Stenosis. 01/18/2017 - Social History Smoking Status: Former smoker Smokeless Tobacco Status: No Alcohol use: none Drug use: none - Family History Father Living Status: Hx Family Cardiac Disorders: Yes Mother Adopted: No Family Member Ethnicity: Non- Living Status: Cause of : aspiration from feeding tube. Brother Living Status: Hx Family Cardiac Disorders: Yes Hx Family Cancer: Yes (Colon) Sister Living Status: Hx Family Cardiac Disorders: Yes (MO) Hx Family Endocrine Disorder: Yes (DM) Hx Family Neurologic Disorders: Yes (CVA) Hx Family Medical Disorders: Yes (Renal failure) Son Hx Family Cardiac Disorders: Yes (HTN) Medications and Allergies Furosemide [Lasix] 20 mg PO 2XW 11/23/15 [History] Potassium Chloride [Klor-Con 10] 10 meq PO 2XW 11/23/15 [History] Aspirin [Lo-Dose Aspirin EC] 81 mg PO DAILY 01/18/17 [History] Lisinopril [Zestril] 10 mg PO BID 01/18/17 [History] Albuterol Sulfate [Proair Hfa] 2 puff IH BID PRN 10/17/17 [History] Cholecalciferol (D-3) [Vitamin D] 2,000 unit PO DAILY 10/17/17 [History] Cyanocobalamin (Vitamin B-12) [Vitamin B12] 1,000 mcg PO QWEEK 10/17/17 [History ] Montelukast [Singulair] 10 mg PO DAILY 10/17/17 [History] 3 Allergy/AdvReac Type Severity Reaction Status Date / Time diltiazem AdvReac See Verified 10/17/17 19:34 Comments All Systems Review: The remainder of the systems were reviewed and are negative - Constitutional Constitutional: no anorexia, no fever(s), no headache(s), no lethargy, no malaise, no night sweats - EENT Eyes: no blurred vision Nose, mouth and throat: no bleeding gums, no epistaxis, no odynophagia - Cardiovascular Cardiovascular: lightheadedness, slow heart rate, no chest pain at rest, no diaphoresis, no leg edema, no orthopnea, no syncope - Respiratory Respiratory: no cough, no dyspnea, no hemoptysis, no wheezing - Gastrointestinal Gastrointestinal: no abdominal pain - Musculoskeletal Musculoskeletal: no abnormal gait - Integumentary Integumentary: no unusual bruising - Neurological Neurological: dizziness, no abnormal speech, no loss of vision - Psychiatric Psychiatric: no anxiety - Hematological/Lymphatic Hematologic/Lymphatic: no easy bleeding Physical Examination General: Conversant, No Apparent Distress Neck: No JVD Cardiac: Reg Rate and Rhythm, Normal S1 and S2, No Murmur Lungs: Normal Breath Sounds, No Wheeze, Rales, Rhonchi Neuro: Alert and responsive, No focal deficits noted Abdomen: Soft, Non-Tender Skin: No rashes noted on visualized skin Extremities: No Edema Results 10/18/17 02:44 10/18/17 02:44 Lab Results 10/18/17 10/18/17 10/18/17 02:44 02:44 02:44 WBC 8.9 Hgb 12.3 Hct 38.5 Plt Count 163 Sodium 142 Potassium 3.9 Chloride 110 H Carbon Dioxide 25 BUN 10 Creatinine 0.51 L Glucose 102 Calcium 8.8 Troponin I < 0.03 Consult Discharge Plan - Plan Referrals: Nathaniel Rodriguez DO [Primary Care Provider] -
--- NOTE | 2017-10-18 14:52 | Electrophysiology Consult Note ---
<Chuck Castelan R - Last Filed: 10/18/17 15:39> Date of Encounter: 10/18/17 Time of Encounter: 14:50 Assessment and Plan (1) Tachy-humaira syndrome Current Visit: Yes Status: Acute Patient with newly diagnosed afib. Presented RVR, but historically sinus humaira unable to tolerate AV roderick blockers. Admitted to ICU with RVR and subsequent 6.8 second conversion pause to SR after cardizem was given. Currently sinus humaira HR 50s. Symptoms of fatigue and lighteadedness. Recommend PPM to allow for use of rate control medications for tachyarrhythmia. Discussed and reviewed with pt and with Dr. Rahat Lara. R/B/A discussed with pt and she agrees to proceed. PPM tomorrow. (2) Atrial fibrillation Current Visit: Yes Status: Acute New diagnosis. A-Fib RVR on presentation. Patient is currently sinus humaira. She will however need rate control medications after PPM implantation. Echo shows normal EF and no significant valvular heart disease. K, Mag, TSH WNL. Her [id number] score is 4, high CVA risk. 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 Will likely recommend waiting 1 week s/p PPM to start AC. Currently on IV heparin gtt. Qualifiers: Atrial fibrillation type: paroxysmal Qualified Code(s): I48.0 - Paroxysmal atrial fibrillation Discussion w patient/family: The assessment and plan as outlined above was discussed with the patient and/or family members who expressed understanding and agreement. All questions were answered. Thank you for involving us in the care of your patient. Please call with any questions. I will discuss all the above with Dr. Rahat Lara and make changes as necessary. History of Present Illness Consult date: 10/18/17 Requesting physician: Joshua Everett Consult reason: PPM Chief complaint: fatigue History of present illness: Ms. Grove is a 72 year old female with a PMH of sinus bradycardia, hypertension, HLD, COPD, GERD, and DAYLIN who presented to the ED due to palpitations and headache. Patient reported her BP was 150/79 at home and her HR is usually in the 50s. Pt reports recent fatigue and occasional dizziness. In the ED, her EKG revealed A-Fib with RVR. Patient was given PO and IV Cardizem and had two pauses 6.8 seconds and 2.4 second pause. Cardiology was consulted and now EP to discuss PPM insertion for tachy-humaira syndrome and pauses. Prior CV testing: TTE 10/17/17: LVEF 60-65%. Normal LV chamber size, wall thickness and function. Normal left ventricular diastolic function. Normal right ventricular structure and function. No evidence of pulmonary hypertension. No significant valvular dysfunction. [facility] 01/18/17: There is mild three vessel coronary artery disease. Holter 12/13/16: Baseline rhythm is normal sinus throughout recording. Rare PACs. Rare PVCs. Several nonsustained episodes of SVT- longest 7 beats. Probable atrial tachycardia. No ventricular arrhythmias. No pauses. No symptoms reported in patient diary. Past Med Surg Social Fam HX - Past Medical History Medical history: asthma, COPD, GERD, hyperlipidemia, hypertension, other Psychiatric history: depression - Past Surgical History Surgical History: appendectomy, hysterectomy, other Additional surgical history: t&A. appy. bladder tuck. hysterectomy. Cardiac Cath. by Dr. Sandy Walters. LMCA is free of disease. LAD shows 25% stenosis in the Mid LAD. Distal Circumflex 40% Stenosis. RCA 25% Stenosis. 01/18/2017 - Social History Smoking Status: Former smoker Smokeless Tobacco Status: No Alcohol use: none Drug use: none - Family History Father Living Status: Hx Family Cardiac Disorders: Yes Mother Adopted: No Family Member Ethnicity: Non- Living Status: Cause of : aspiration from feeding tube. Brother Living Status: Hx Family Cardiac Disorders: Yes Hx Family Cancer: Yes (Colon) Sister Living Status: Hx Family Cardiac Disorders: Yes (SD) Hx Family Endocrine Disorder: Yes (DM) Hx Family Neurologic Disorders: Yes (CVA) Hx Family Medical Disorders: Yes (Renal failure) Son Hx Family Cardiac Disorders: Yes (HTN) Medications and Allergies Furosemide [Lasix] 20 mg PO 2XW 11/23/15 [History] Potassium Chloride [Klor-Con 10] 10 meq PO 2XW 11/23/15 [History] Aspirin [Lo-Dose Aspirin EC] 81 mg PO DAILY 01/18/17 [History] Lisinopril [Zestril] 10 mg PO BID 01/18/17 [History] Albuterol Sulfate [Proair Hfa] 2 puff IH BID PRN 09/11/18 [History] Cholecalciferol (D-3) [Vitamin D] 2,000 unit PO DAILY 10/17/17 [History] Cyanocobalamin (Vitamin B-12) [Vitamin B12] 1,000 mcg PO QWEEK 10/17/17 [History ] Montelukast [Singulair] 10 mg PO DAILY 10/17/17 [History] 3 Allergy/AdvReac Type Severity Reaction Status Date / Time diltiazem AdvReac See Verified 10/17/17 19:34 Comments All Systems Review: The remainder of the systems were reviewed and are negative - Constitutional Constitutional: fatigue, weakness - Cardiovascular Cardiovascular: as per HPI, lightheadedness, palpitations - Neurological Neurological: dizziness Physical Examination Vital Signs, Last 4 Hours Temp Pulse Resp BP Pulse Ox 10/18/17 12:30 47 17 137/68 98 10/18/17 12:00 98.0 F 48 Vital Signs Temp Pulse Resp BP Pulse Ox 10/18/17 12:30 47 17 137/68 98 10/18/17 12:00 98.0 F 48 10/18/17 08:00 97.8 F 51 17 130/66 98 10/18/17 06:00 55 18 98 10/18/17 04:35 98.0 F 10/18/17 04:00 49 16 142/64 98 10/18/17 02:00 53 16 98 10/18/17 00:00 97.5 F L 51 16 131/73 97 10/17/17 22:00 54 18 96 10/17/17 21:06 22 152/79 93 10/17/17 21:00 58 20 121/54 98 10/17/17 20:00 52 20 152/79 96 10/17/17 19:50 97.9 F 54 20 139/84 97 10/17/17 18:53 57 18 156/84 100 10/17/17 17:57 58 18 155/90 100 10/17/17 17:27 131 18 147/84 98 10/17/17 16:52 98 10/17/17 16:39 104 18 126/84 98 10/17/17 16:03 99 10/17/17 15:58 97.1 F L 157 18 150/102 98 Intake and Output 09/12/2410/18/17 10/18/17 23:59 07:59 15:59 Intake Total 500 / 500 150 / 150 240 / 240 Output Total 0 / 0 400 / 400 Balance 500 / 500 -250 / -250 240 / 240 Intake: IV Fluids 500 / 500 150 / 150 0.9 % Sodium Chloride 500 ML @ 500 / 500 999 mls/hr IVC .Q31M ONE Rx#: [id number] Heparin 25,000 UNIT/500 ML D5W 150 / 150 25,000 unit In 500 ml @ 11.31 UNIT/KG/HR 20.008 mls/hr IVC . Q24H [place] Rx#:[id number] Oral 0 / 0 240 / 240 Output: Urine 0 / 0 400 / 400 Other: Meal snack Breakfast Percent of Meal Consumed 100% 75% # Voids 1 Weight 89.3 kg Blood Glucose* 94 General: Conversant, No Apparent Distress HEENT: Atraumatic, Normocephaly, Mucus Membranes Moist Neck: No JVD, Normal carotid pulses Cardiac: Reg Rate and Rhythm, Normal S1 and S2, No Murmur Lungs: Normal Breath Sounds, No Wheeze, Rales, Rhonchi Neuro: Alert and responsive, No focal deficits noted Abdomen: Soft, Non-Tender Skin: No rashes noted on visualized skin Musculoskeletal: No Chest Wall Tenderness Extremities: No Clubbing, No Cyanosis, No Edema, Normal Pulses Results 10/18/17 02:44 10/18/17 02:44 Lab Results 10/17/17 10/18/17 10/18/17 21:10 02:44 02:44 WBC 8.9 Hgb 12.3 Hct 38.5 Plt Count 163 Sodium Potassium Chloride Carbon Dioxide BUN Creatinine Glucose Calcium Magnesium 2.1 Troponin I 0.03 < 0.03 10/18/17 02:44 WBC Hgb Hct Plt Count Sodium 142 Potassium 3.9 Chloride 110 H Carbon Dioxide 25 BUN 10 Creatinine 0.51 L Glucose 102 Calcium 8.8 Magnesium Troponin I Short CBC 10/18/17 10/17/17 10/17/17 Range/Units 02:44 18:12 16:04 WBC 8.9 9.2 7.8 (4.3-11.1) K/mcL Hgb 12.3 13.7 13.4 (11.5-15.4) g/dL Hct 38.5 42.4 41.7 (35.3-44.9) % Plt Count 163 177 177 (140-400) K/mcL Neutrophils # 4.3 (1.6-8.9) K/mcL BMP 10/18/17 10/17/17 Range/Units 02:44 16:04 Sodium 142 143 (136-145) mEq/L Potassium 3.9 3.9 (3.5-5.1) mEq/L Chloride 110 H 108 H (98-107) mEq/L Carbon Dioxide 25 30 H (23-29) mEq/L BUN 10 10 (8-23) mg/dL Creatinine 0.51 L 0.54 L (0.60-1.20) mg/dL Glucose 102 90 (70-105) mg/dL Calcium 8.8 9.1 (8.6-10.3) mg/dL Cardiac Enzymes 10/18/17 10/17/17 10/17/17 Range/Units 02:44 21:10 16:04 Troponin I < 0.03 0.03 < 0.03 (< 0.04) ng/mL Impressions Chest X-Ray 10/17/17 16:04 IMPRESSION: 1.Cardiomegaly with mild vascular congestion. D/ / Niels Dillard MD / Niels Dillard MD Interpreting Provider: Niels Dillard MD Echocardiogram 10/17/17 22:16 Impressions: LVEF 60-65%. Normal LV chamber size, wall thickness and function. Normal left ventricular diastolic function. Normal right ventricular structure and function. No evidence of pulmonary hypertension. No significant valvular dysfunction. Left Ventricular Wall Motion: Rest Echo Findings All wall segments showed normal motion. Findings: Study Quality * Technically adequate exam. ECG Findings * Normal sinus rhythm. Left Ventricle * LVEF 60-65%. * Normal LV chamber size, wall thickness and function. * Normal left ventricular diastolic function. Right Ventricle * Normal right ventricular structure and function. Left Atrium * Mildly dilated left atrium. Right Atrium * Normal right atrial size. Aortic Valve * Trileaflet aortic valve with normal function. * No aortic stenosis. * Trace aortic regurgitation. Mitral Valve * Mild mitral annular calcification * No mitral regurgitation. * No mitral stenosis. Tricuspid Valve * Normal tricuspid valve structure and function. * Trace tricuspid regurgitation. * No evidence of pulmonary hypertension. Pulmonic Valve * Normal pulmonic valve structure and function. * No pulmonic regurgitation. Aorta * Normally sized aortic root. Pericardium * The pericardium appears normal. IVC * Normal IVC dimensions and inspiratory collapse. Pulmonary Artery * Normal visualized portions of the main pulmonary artery. Active Medications Acetaminophen (Tylenol) 650 mg PO Q6HR PRN PRN Reason: Mild Pain/Fever Stop: 04/18/18 20:43 Albuterol Sulfate (Albuterol Inhaler) 2 puff IH BID PRN PRN Reason: Shortness Of Breath Stop: 04/18/18 21:07 Albuterol/Ipratropium (Duoneb) 3 ml IH [id number] PRN PRN Reason: Shortness Of Breath/Wheezing Stop: 04/18/18 20:54 Aspirin (Aspirin Ec) 81 mg PO DAILY [facility] Stop: 04/19/18 09:01 Last Admin: 10/18/17 08:03 Dose: 81 mg Atorvastatin Calcium (Lipitor) 40 mg PO HS [facility] Stop: 04/18/18 21:16 Atropine Sulfate (Atropine) 0.5 mg IVP ONCE PRN PRN Reason: bradycardia Stop: 04/18/18 21:13 Cyanocobalamin (Vitamin B12) 1,000 mcg PO QWEEK [facility] Stop: 04/18/18 21:16 Last Admin: 10/17/17 22:09 Dose: Not Given Furosemide (Lasix) 20 mg PO 2XW [facility] Stop: 04/20/18 09:01 Heparin Sodium (Porcine) (Heparin) 4,000 unit IVP Q6H PRN PRN Reason: SEE COMMENTS Stop: 04/18/18 17:55 Heparin Sodium (Porcine) (Heparin) 2,000 unit IVP Q6H PRN PRN Reason: SEE COMMENTS Stop: 04/18/18 17:55 Heparin Sodium/Dextrose (Heparin 25,000 Unit/500 Ml D5w) 25,000 unit in 500 mls @ 20.008 mls/hr IVC .Q24H [place]; 11.31 UNIT/KG/HR PRN Reason: Protocol Stop: 04/18/18 18:01 Last Admin: 10/17/17 22:07 Dose: Not Given Lisinopril (Zestril) 10 mg PO BID [place] PRN Reason: Protocol Stop: 04/19/18 09:01 Last Admin: 10/18/17 08:02 Dose: 10 mg Montelukast Sodium (Singulair) 10 mg PO QPM [facility] Stop: 04/19/18 18:01 Omeprazole (Prilosec) 40 mg PO DAILY@0630 [place] PRN Reason: Protocol Stop: 04/19/18 06:31 Last Admin: 10/18/17 06:23 Dose: 40 mg Ondansetron HCl (Zofran) 4 mg IVP Q6HR PRN; Protocol PRN Reason: Nausea And Vomiting Stop: 04/18/18 20:43 Potassium Chloride (Potassium Chloride) 10 meq PO 2XW [place] Stop: 04/20/18 09:01 Vitamin D (Vitamin D) 1,000 unit PO DAILY [facility] Stop: 04/19/18 09:01 Last Admin: 10/18/17 08:02 Dose: 1,000 unit - Imaging and Cardiology Echo: report reviewed Cardiac cath: report reviewed - EKG Interpretation EKG results cardiology: personally reviewed, other (24 hr tele AVG HR 50, sinus humaira) Consult Discharge Plan - Plan Referrals: Nathaniel Rodriguez, DO [Primary Care Provider] - <Rahat Lara - Last Filed: 10/19/17 15:54> Date of Encounter: 10/19/17 - Attending Attestation I have personally performed a face to face evaluation on this patient. I have reviewed and agree with the care plan. History and Exam by me shows: AF, tachy-humaira with long sinus pauses noted. Pacemaker discussed, she agrees to proceed. Assessment and Plan Discussion w patient/family: The assessment and plan as outlined above was discussed with the patient and/or family members who expressed understanding and agreement. All questions were answered. Thank you for involving us in the care of your patient. Please call with any questions. History of Present Illness History of present illness: Ms. Grove is a 72 year old female All Systems Review: The remainder of the systems were reviewed and are negative Physical Examination Vital Signs, Last 4 Hours Temp Pulse Resp BP Pulse Ox 10/19/17 14:00 97.5 F L 60 18 206/99 93 Results 10/18/17 02:44 10/18/17 02:44
--- NOTE | 2017-10-18 18:15 | Internal Med Progress Note ---
Hospitalist Progress Note - Encounter Date of Encounter: 10/18/17 Time of Encounter: 19:00 - Subjective Interval History: SUBJECTIVE: The patient feels good. She was admitted with A. fib with RVR. It was last night, when she cardioverted to sinus bradycardia. Before it happened she had third 2 sinus pauseseach lasting several seconds. She had at least a few episodes of significant bradycardia before atrial fibrillation happened. Denies chest pain. Denies dyspnea, coughing and wheezing. Denies abdominal pain, nausea and vomiting. She has normal urination. OBJECTIVE: Skin: Free of rash and discoloration. ENMT: Oral/pharyngeal mucosa is normal in appearance. Eyes: Sclera is white. There is no discharge from eyes. Respiratory: Normal breath sounds; no crackles or wheezes. CV: Heart is regular; no gallop or murmur. GI: Abdomen is soft and not tender. There is no palpable mass or visceromegaly. Neuro: There is no focal deficits. ASSESSMENT AND PLAN: Tachycardiabradycardia syndrome. She had A. fib with RVR at admission. Cardiology is consulted. They will proceed with insertion of a pacemaker tomorrow morning. The patient is on IV heparin drip. Hypertension. Under control. She is on lisinopril and furosemide. GERD. Under control. Will continue omeprazole. Hyperlipidemia. She is on Lipitor. Obstructive sleep apnea on CPAP/obesity with BMI between 30 and 35. Will continue CPAP treatments. - Exam Vitals: Temp Pulse Resp BP Pulse Ox 98.7 F 47 17 137/68 98 10/18/17 16:00 10/18/17 12:30 10/18/17 12:30 10/18/17 12:30 10/18/17 12:30 Exam: xxx - Assessment and Plan (1) Tachy-humaira syndrome Current Visit: Yes Status: Acute (2) Atrial fibrillation with RVR Current Visit: Yes Status: Resolved (3) COPD (chronic obstructive pulmonary disease) Current Visit: No Status: Chronic (4) HTN (hypertension) Current Visit: Yes Status: Chronic (5) GERD (gastroesophageal reflux disease) Current Visit: Yes Status: Acute (6) HLD (hyperlipidemia) Current Visit: Yes Status: Chronic (7) DAYLIN on CPAP Current Visit: Yes Status: Chronic (8) Obesity (BMI 30.0-34.9) Current Visit: Yes Status: Chronic - Time Spent with Patient Total time spent is greater than 50% in coordination of care (as documented) at patient's floor/unit and/or counseling patient: 25 - 35 minutes Internal Medicine: Result - Labs CBC & Chem 7: 10/18/17 02:44 10/18/17 02:44 - ABG Interpretation ABG results: PT/INR, D-dimer PT 11.8 Seconds (9.4-12.1) 10/17/17 18:12 Consult Discharge Plan - Plan Referrals: Nathaniel Rodriguez DO [Primary Care Provider] - (3) COPD (chronic obstructive pulmonary disease) Qualifiers: COPD type: unspecified COPD Qualified Code(s): J44.9 - Chronic obstructive pulmonary disease, unspecified (4) HTN (hypertension) Qualifiers: Hypertension type: essential hypertension Qualified Code(s): I10 - Essential (primary) hypertension (5) GERD (gastroesophageal reflux disease) Qualifiers: Esophagitis presence: esophagitis presence not specified Qualified Code(s): K21.9 - Gastro-esophageal reflux disease without esophagitis (6) HLD (hyperlipidemia) Qualifiers: Hyperlipidemia type: unspecified Qualified Code(s): E78.5 - Hyperlipidemia, unspecified
[2017-10-18] MEDS: Heparin 25,000 UNIT/500 ML D5W 25,000 UNIT/500 ML BAG IVC SCH (21:56)
[2017-10-19] MEDS ORDERED: Furosemide 20 MG TABLET PO SCH ×2 (09:00)
[2017-10-19] MEDS: Cholecalciferol (D-3) 1,000 UNIT TABLET PO SCH (10:19)
[2017-10-19] MEDS: Aspirin Enteric Coated 81 MG Tablet PO SCH (10:23)
--- NOTE | 2017-10-19 10:53 | Pre-Sedation Evaluation ---
Pre-sedation evaluation - Pre-sedation checklist Date of procedure: 10/19/17 [facility] Recent Vitals: Last Vital Signs Temp 97.8 F 10/19/17 08:00 Pulse 55 10/19/17 10:26 Resp 20 10/19/17 10:26 BP 170/72 10/19/17 10:26 Pulse Ox 96 10/19/17 03:00 H&P (including ROS) documented in medical record: Yes Previous reaction to sedatives/anesthetics: Yes; explain in comment Dietary Status: NPO after Midnight Airway Assessment: Patient can open mouth completely, TMJ function normal, Micrognathia (under-bite, receding chin) absent Possible difficult airway: No ASA Classification *see protocol: CLASS II-Mild systemic disease Plan of Care: Pt appropriate candidate for procedure/moderate/conscious sedation , Risks/benefits of procedure/sedation discussed w/ patient/family Cardiac Registry (Cardio Only) - Functional Capacity - Clincal Frailty Scale
[2017-10-19] MEDS ORDERED: 0.9 % Sodium Chloride 500 ML ONE (12:34)
[2017-10-19] MEDS ORDERED: Water for inj. (sterile) 10 ML IV ONE (12:35)
[2017-10-19] MEDS ORDERED: 0.9 % Sodium Chloride 1,000 ML ONE (12:35)
[2017-10-19] MEDS ORDERED: *HR* FentaNYL (PF) 100 MCG/2 ML VIAL ONE (12:53)
[2017-10-19] MEDS ORDERED: *HR* Midazolam HCl 2 MG/2 ML VIAL ONE (12:54)
--- NOTE | 2017-10-19 13:39 | Event Note ---
Date of Encounter: 10/19/17 Time of Encounter: 13:38 - Cardiology Event Note Eliquis padron check $47/month. Will discuss with pt to see if this is affordable. If affordable, plan to start Eliquis 5mg BID 1 week after PPM insertion.
[2017-10-19] MEDS ORDERED: *HR* OxyCODONE Immed Rel 5 MG TABLET PO PRN (14:08)
--- NOTE | 2017-10-19 17:03 | Cardiology Progress Note ---
Date of Encounter: 10/19/17 Time of Encounter: 17:00 Assessment and Plan (1) Tachy-humaira syndrome Current Visit: Yes Status: Acute s/p PPM with heart rates in the 60s. Can now resume rate control medications (2) Atrial fibrillation Current Visit: Yes Status: Acute Eliquis 5mg bid for intermediate anticoagulation once cleared from EP perspective. Qualifiers: Atrial fibrillation type: paroxysmal Qualified Code(s): I48.0 - Paroxysmal atrial fibrillation (3) Hypertension Current Visit: Yes Status: Acute Patient with known hypertension on lisinopril 10mg bid at home. Recommend labetalol 200mg q8hrly, and continue lisinopril 20mg daily; may give hydralazine 10mg IV q6prn if SBP > 170mmHg Qualifiers: Qualified Code(s): I10 - Essential (primary) hypertension Discussion w patient/family: The assessment and plan as outlined above was discussed with the patient and/or family members who expressed understanding and agreement. All questions were answered. Thank you for involving us in the care of your patient. Please call with any questions. Subjective Principal diagnosis: Tachy-humaira syndrome Interval history: Patient with tachybrady syndrome and prolonged conversion pause after converting from afib to sinus rhythm. She received a DDD pacemaker this afternoon. Noted to be hypertensive with SBP in the 200s. She felt a slight headache during the episode, no blurry vision or chest pain. Objective Vital Signs, Last 4 Hours Temp Pulse Resp BP Pulse Ox 10/19/17 15:46 60 10/19/17 15:00 98.5 F 60 18 192/95 10/19/17 14:00 97.5 F L 60 18 206/99 93 General: Conversant, No Apparent Distress Neck: No JVD, Normal carotid pulses Cardiac: Reg Rate and Rhythm, Normal S1 and S2, No Murmur Lungs: Normal Breath Sounds, No Wheeze, Rales, Rhonchi Neuro: Alert and responsive Abdomen: Soft Musculoskeletal: Other (Pacemaker on L upper chest wall; dressing is clean and dry) Extremities: No Edema Results 10/18/17 02:44 10/18/17 02:44 Consult Discharge Plan - Plan Referrals: Nathaniel Rodriguez DO [Primary Care Provider] -
[2017-10-19] MEDS: *HR* Heparin 5,000 UNIT/ML VIAL SQ SCH (17:33)
[2017-10-19] MEDS: Lisinopril 20 MG TABLET PO SCH (20:44)
[2017-10-20 04:27] LABS: BUN/Creatinine Ratio 16 (6-26); Blood Urea Nitrogen 8 mg/dL (8-23); Carbon Dioxide 24 mEq/L (23-29); Chloride 107 mEq/L (98-107); Potassium 3.7 mEq/L (3.5-5.1); Sodium 139 mEq/L (136-145); eGFR For Non-African Americans > 60 (> 60)
--- NOTE | 2017-10-20 05:56 | Internal Med Progress Note ---
Hospitalist Progress Note - Encounter Date of Encounter: 10/21/17 Time of Encounter: 19:00 - Subjective Interval History: SUBJECTIVE: The patient feels good. She was admitted with A. fib with RVR. She cardioverted to normal sinus rhythm. When it was happening she had 2 long sinus pauses. The patient had the pacemaker inserted with her today. She has some pain below her left clavicle. Denies dyspnea, coughing and wheezing. Heart monitor is showing pacer rhythm; 60 bpm. OBJECTIVE: Skin: Free of rash and discoloration. ENMT: Oral/pharyngeal mucosa is normal in appearance. Eyes: Sclera is white. There is no discharge from eyes. Respiratory: Normal breath sounds; no crackles or wheezes. CV: Heart is regular; no gallop or murmur. GI: Abdomen is soft and not tender. There is no palpable mass or visceromegaly. Neuro: There is no focal deficits. ASSESSMENT AND PLAN: Tachycardiabradycardia syndrome. She had A. fib with RVR at admission. Cardiology is consulted. They inserted the pacemaker today morning. The patient is started on labetalol. Hypertension. Under control. We will continue labetalol, lisinopril and furosemide. GERD. Under control. Will continue omeprazole. Hyperlipidemia. She is on Lipitor. Obstructive sleep apnea on CPAP/obesity with BMI between 30 and 35. Will continue CPAP treatments. - Exam Vitals: Temp Pulse Resp BP Pulse Ox 99.0 F 61 16 136/76 95 10/20/17 03:58 10/20/17 03:00 10/19/17 23:45 10/19/17 23:45 10/19/17 23:45 Exam: xx - Assessment and Plan (1) Tachy-humaira syndrome Status: Acute (2) Atrial fibrillation with RVR Status: Resolved (3) COPD (chronic obstructive pulmonary disease) Status: Chronic (4) HTN (hypertension) Status: Chronic (5) GERD (gastroesophageal reflux disease) Status: Chronic (6) HLD (hyperlipidemia) Status: Chronic (7) DAYLIN on CPAP Status: Chronic (8) Obesity (BMI 30.0-34.9) Status: Chronic - Time Spent with Patient Total time spent is greater than 50% in coordination of care (as documented) at patient's floor/unit and/or counseling patient: 25 - 35 minutes Plan of Care Discussed with: patient Internal Medicine: Result - Labs CBC & Chem 7: 10/18/17 02:44 10/20/17 03:20 Labs: BMP 10/20/17 03:20 Sodium 139 Potassium 3.7 Chloride 107 Carbon Dioxide 24 BUN 8 Creatinine 0.51 L - ABG Interpretation ABG results: PT/INR, D-dimer PT 11.8 Seconds (9.4-12.1) 10/17/17 18:12 - Impressions Impressions Chest X-Ray 10/19/17 14:08 IMPRESSION: Interval placement left subclavian pacer wires with no pneumothorax. D/ / Taco Akins MD / Taco Akins MD Interpreting Provider: Taco Akins MD Consult Discharge Plan - Plan Instructions: Pacemaker (DC) Additional Instructions: ACTIVITY: Moderate activity for the next 7 days. No lifting more than 5 pounds ( gallon of milk) for 4-6 weeks. Avoid lifting your arm on the same side as the device for 4 weeks. BATHING /SHOWERING: Do not remove the large bandage over the site for 2 days. Do not allow the device to get wet for 7-10 days. You may bathe/shower, but do not use soap and water on the site. When bathing, keep the site dry by covering with Saran wrap or a towel. WOUND CARE: The white steri-strips will start to peel away and come off after 14 days, or your doctor will remove them after [address] anything into or on top of the incision. Do not use cotton swabs. Do not use any antibiotic ointment or Vitamin E on the site. REMINDERS: You may use electrical devices, such as, microwaves, hair dryers, electric razors, electric blankets, etc. as long as they are in good condition and kept 6 -8 inches away from the device. It is recommended to use cell phones on the opposite side of your device. Notify security personnel at the airport that you have a device before you go through airport security screening. When at places with security monitors, such as a grocery store, do not linger near these monitors. It is fine to walk past them in a normal manner. Refer to your owners manual for more specific directions. CARRY YOUR PACEMAKER/ICD CARD WITH YOU AT ALL TIMES Return to work as instructed per physician Resume driving as instructed per physician Keep all scheduled follow up appointments Resume medications as instructed Contact [facility] ( ) if: You develop excessive bleeding from insertion or wound site not controlled by applying pressure You develop a fever greater than 101 degrees Fahrenheit Your incision becomes reddened at or around the site Your incision develops yellowish or greenish drainage or development of white pimple-like bumps You experience excessive pain You develop swelling in your ankles You experience muscle switching You develop excessive hiccupping If you experience chest pain, shortness of breath, dizziness, or extreme tiredness, stop the activity and rest. Please notify [facility] office if you experience any of these symptoms and they are not relieved by rest please call 911! The patient is recommended to follow in the device clinic in one week for a wound check and one month for a device check. Out-patient f/u in [address] Lara. Referrals: Nathaniel Rodriguez, [Primary Care Provider] - Prescriptions: Apixaban [Eliquis] 5 mg PO BID #60 tablet Atorvastatin [Lipitor] 40 mg PO HS 30 Days #30 tablet Labetalol [Trandate] 200 mg PO BID 30 Days #60 tablet Lisinopril [Zestril] 20 mg PO BID 30 Days #60 tablet (3) COPD (chronic obstructive pulmonary disease) Qualifiers: COPD type: unspecified COPD Qualified Code(s): J44.9 - Chronic obstructive pulmonary disease, unspecified (4) HTN (hypertension) Qualifiers: Hypertension type: essential hypertension Qualified Code(s): I10 - Essential (primary) hypertension (5) GERD (gastroesophageal reflux disease) Qualifiers: Esophagitis presence: esophagitis presence not specified Qualified Code(s): K21.9 - Gastro-esophageal reflux disease without esophagitis (6) HLD (hyperlipidemia) Qualifiers: Hyperlipidemia type: unspecified Qualified Code(s): E78.5 - Hyperlipidemia, unspecified
[2017-10-20] MEDS: *HR* Heparin 5,000 UNIT/ML VIAL SQ SCH (06:39)
[2017-10-20] MEDS: Aspirin Enteric Coated 81 MG Tablet PO SCH (09:09)
[2017-10-20] MEDS: Lisinopril 20 MG TABLET PO SCH (09:10)
[2017-10-20] MEDS: Cholecalciferol (D-3) 1,000 UNIT TABLET PO SCH (09:10)
[2017-10-20 11:58] VITALS: BP 120/60
--- NOTE | 2017-10-20 13:52 | Cardiology Progress Note ---
Date of Encounter: 10/20/17 Time of Encounter: 12:30 Assessment and Plan (1) Tachy-humaira syndrome Current Visit: Yes Status: Acute s/p PPM with heart rates in the 60s. Can now resume rate control medications Post procedure chest x-ray was negative for pneumothorax. Post procedure device check was normal. She is recommended to follow in the device clinic in one week for a wound check and one month for a device check. Out-patient f/u in [address] Lara. Activity restrictions and wound care reviewed. Cardiology will sign off. Call with questions. (2) Atrial fibrillation Current Visit: Yes Status: Acute Seen to have PAF. Now atrial paced. Eliquis 5mg bid for intermediate accountant anticoagulation . Chakraborty checked and is affordable. Recommend starting in one week after PPM placement per EP. Patient is agreeable. Qualifiers: Atrial fibrillation type: paroxysmal Qualified Code(s): I48.0 - Paroxysmal atrial fibrillation (3) HTN (hypertension) Current Visit: Yes Status: Chronic Discussed with Dr. Benitez. Recommends labetalol 200 mg BID. Lisinopril 20 mg BID. B/p improved. Qualifiers: Hypertension type: essential hypertension Qualified Code(s): I10 - Essential (primary) hypertension Discussion w patient/family: The assessment and plan as outlined above was discussed with the patient and/or family members who expressed understanding and agreement. All questions were answered. Thank you for involving us in the care of your patient. Please call with any questions. Subjective Principal diagnosis: Tachy-humaira syndrome Interval history: No new comolaints. Denies pain in left chest. Objective Vital Signs, Last 4 Hours Temp Pulse Resp BP Pulse Ox 10/20/17 11:56 98.4 F 62 16 120/60 98 10/20/17 11:00 61 10/20/17 10:00 67 General: Conversant, No Apparent Distress HEENT: Atraumatic, Normocephaly, Mucus Membranes Moist Neck: No JVD, Normal carotid pulses Cardiac: Reg Rate and Rhythm, Normal S1 and S2, No Murmur, Other (ESPINOZA dressing D /I) Lungs: Normal Breath Sounds, No Wheeze, Rales, Rhonchi Neuro: Alert and responsive, No focal deficits noted Abdomen: Soft, Non-Tender Skin: No rashes noted on visualized skin Musculoskeletal: No Chest Wall Tenderness Extremities: No Clubbing, No Cyanosis, No Edema, Normal Pulses Results 10/18/17 02:44 10/20/17 03:20 Lab Results 10/20/17 03:20 Sodium 139 Potassium 3.7 Chloride 107 Carbon Dioxide 24 BUN 8 Creatinine 0.51 L - Imaging and Cardiology Chest Xray: report reviewed Echo: report reviewed - EKG Interpretation EKG results cardiology: personally reviewed Consult Discharge Plan - Plan Instructions: Pacemaker (DC) Additional Instructions: ACTIVITY: Moderate activity for the next 7 days. No lifting more than 5 pounds ( gallon of milk) for 4-6 weeks. Avoid lifting your arm on the same side as the device for 4 weeks. BATHING /SHOWERING: Do not remove the large bandage over the site for 2 days. Do not allow the device to get wet for 7-10 days. You may bathe/shower, but do not use soap and water on the site. When bathing, keep the site dry by covering with Saran wrap or a towel. WOUND CARE: The white steri-strips will start to peel away and come off after 14 days, or your doctor will remove them after [address] anything into or on top of the incision. Do not use cotton swabs. Do not use any antibiotic ointment or Vitamin E on the site. REMINDERS: You may use electrical devices, such as, microwaves, hair dryers, electric razors, electric blankets, etc. as long as they are in good condition and kept 6 -8 inches away from the device. It is recommended to use cell phones on the opposite side of your device. Notify security personnel at the airport that you have a device before you go through airport security screening. When at places with security monitors, such as a grocery store, do not linger near these monitors. It is fine to walk past them in a normal manner. Refer to your owners manual for more specific directions. CARRY YOUR PACEMAKER/ICD CARD WITH YOU AT ALL TIMES Return to work as instructed per physician Resume driving as instructed per physician Keep all scheduled follow up appointments Resume medications as instructed Contact [facility] ( ) if: You develop excessive bleeding from insertion or wound site not controlled by applying pressure You develop a fever greater than 101 degrees Fahrenheit Your incision becomes reddened at or around the site Your incision develops yellowish or greenish drainage or development of white pimple-like bumps You experience excessive pain You develop swelling in your ankles You experience muscle switching You develop excessive hiccupping If you experience chest pain, shortness of breath, dizziness, or extreme tiredness, stop the activity and rest. Please notify [facility] office if you experience any of these symptoms and they are not relieved by rest please call 911! Referrals: Nathaniel Rodriguez, [Primary Care Provider] -
--- NOTE | 2017-10-20 14:28 | Discharge Summary ---
Date of Encounter: 10/21/17 Time of Encounter: 14:26 - Discharge Diagnosis (1) Tachy-humaira syndrome Priority: Primary Status: Acute (2) Atrial fibrillation with RVR Priority: Primary Status: Resolved (3) COPD (chronic obstructive pulmonary disease) Priority: Secondary Status: Chronic Qualifiers: COPD type: unspecified COPD Qualified Code(s): J44.9 - Chronic obstructive pulmonary disease, unspecified (4) HTN (hypertension) Priority: Secondary Status: Chronic Qualifiers: Hypertension type: essential hypertension Qualified Code(s): I10 - Essential (primary) hypertension (5) GERD (gastroesophageal reflux disease) Priority: Secondary Status: Chronic Qualifiers: Esophagitis presence: esophagitis presence not specified Qualified Code(s) : K21.9 - Gastro-esophageal reflux disease without esophagitis (6) HLD (hyperlipidemia) Priority: Secondary Status: Chronic Qualifiers: Hyperlipidemia type: unspecified Qualified Code(s): E78.5 - Hyperlipidemia , unspecified (7) DAYLIN on CPAP Priority: Secondary Status: Chronic (8) Obesity (BMI 30.0-34.9) Priority: Secondary Status: Chronic Hospital course: This is a 72-year-old woman was admitted to the hospital with her palpitation and headache. She was found to have atrial fibrillation with rapid ventricular rate. She was admitted with IV and by mouth diltiazem. Subsequently, she cardioverted to normal sinus rhythm. Before it happened, she had to long sinus pauses: 610 second. She was bradycardic for a short time before getting to normal sinus rhythm. Cardiology was consulted. They made the diagnosis of tachybradycardia syndrome. They inserted a pacemaker. The patient was put on labetalol and lisinopril. CONDITION AT DISCHARGE: The patient feels good. She does have mild pain below her left clavicle (the area of inserted to her pacemaker). Denies difficulty breathing care, coughing and wheezing. She ambulates on her own without difficulties. Skin: Free of rash and discoloration. Respiratory: Normal breath sounds with no crackles and wheezes bilaterally. CV: Heart is regular with no gallop or murmur. GI: Abdomen is flat and soft with no palpable mass or visceromegaly. Neuro exam: There is no focal deficits. Normal speech, swallowing and gait. SEE DISCHARGE ORDERS/MEDICATIONS.. Discharge discussed with: patient, nurse - Time Spent with Patient Total time spent providing and/or coordinating discharge services: Greater than 30 minutes (40 minutes) - Discharge Medications Prescriptions: Apixaban [Eliquis] 5 mg PO BID #60 tablet Atorvastatin [Lipitor] 40 mg PO HS 30 Days #30 tablet Labetalol [Trandate] 200 mg PO BID 30 Days #60 tablet Lisinopril [Zestril] 20 mg PO BID 30 Days #60 tablet Home Medications: Furosemide [Lasix] 20 mg PO 2XW 11/23/15 [History] Potassium Chloride [Klor-Con 10] 10 meq PO 2XW 11/23/15 [History] Aspirin [Lo-Dose Aspirin EC] 81 mg PO DAILY 01/18/17 [History] Albuterol Sulfate [Proair Hfa] 2 puff IH BID PRN 10/17/17 [History] Cholecalciferol (D-3) [Vitamin D] 2,000 unit PO DAILY 10/17/17 [History] Cyanocobalamin (Vitamin B-12) [Vitamin B12] 1,000 mcg PO QWEEK 10/17/17 [History ] Montelukast [Singulair] 10 mg PO DAILY 10/17/17 [History] Apixaban [Eliquis] 5 mg PO BID #60 tablet 10/20/17 [Rx] Atorvastatin [Lipitor] 40 mg PO HS 30 Days #30 tablet 10/20/17 [Rx] Labetalol [Trandate] 200 mg PO BID 30 Days #60 tablet 10/20/17 [Rx] Lisinopril [Zestril] 20 mg PO BID 30 Days #60 tablet 10/20/17 [Rx] Allergies/Adverse Reactions: 3 Allergy/AdvReac Type Severity Reaction Status Date / Time diltiazem AdvReac See Verified 10/17/17 19:34 Comments Date of admission: 10/18/17 14:12 Primary care physician: Nathaniel Rodriguez DO Consults: 10/19/17 10:10 Consult to Electrophysiology (EP) [CONS] Routine Consulting Provider: [facility] Reason for Consult: eval for pacer Call Completed: Yes Discharging clinician: Venkatesh Joyner Anticipated date of discharge: 10/20/17 - Constitutional Vitals: Temp Pulse Resp BP Pulse Ox 98.4 F 62 16 120/60 98 10/20/17 11:56 10/20/17 11:56 10/20/17 11:56 10/20/17 11:56 10/20/17 11:56 General appearance: Present: cooperative, A&O X 3, pleasant, answers questions appropriately Exam: xxx - Patient Status Disposition: Home, Self-Care Condition: Good Functional capacity at discharge: independent ambulation Overall status at discharge: patient is back to baseline - Discharge Instructions Instructions: Pacemaker (DC) Follow Up With: Nathaniel Rodriguez, [Primary Care Provider] - Additional Instructions: ACTIVITY: Moderate activity for the next 7 days. No lifting more than 5 pounds ( gallon of milk) for 4-6 weeks. Avoid lifting your arm on the same side as the device for 4 weeks. BATHING /SHOWERING: Do not remove the large bandage over the site for 2 days. Do not allow the device to get wet for 7-10 days. You may bathe/shower, but do not use soap and water on the site. When bathing, keep the site dry by covering with Saran wrap or a towel. WOUND CARE: The white steri-strips will start to peel away and come off after 14 days, or your doctor will remove them after [address] anything into or on top of the incision. Do not use cotton swabs. Do not use any antibiotic ointment or Vitamin E on the site. REMINDERS: You may use electrical devices, such as, microwaves, hair dryers, electric razors, electric blankets, etc. as long as they are in good condition and kept 6 -8 inches away from the device. It is recommended to use cell phones on the opposite side of your device. Notify security personnel at the airport that you have a device before you go through airport security screening. When at places with security monitors, such as a grocery store, do not linger near these monitors. It is fine to walk past them in a normal manner. Refer to your owners manual for more specific directions. CARRY YOUR PACEMAKER/ICD CARD WITH YOU AT ALL TIMES Return to work as instructed per physician Resume driving as instructed per physician Keep all scheduled follow up appointments Resume medications as instructed Contact [facility] ( ) if: You develop excessive bleeding from insertion or wound site not controlled by applying pressure You develop a fever greater than 101 degrees Fahrenheit Your incision becomes reddened at or around the site Your incision develops yellowish or greenish drainage or development of white pimple-like bumps You experience excessive pain You develop swelling in your ankles You experience muscle switching You develop excessive hiccupping If you experience chest pain, shortness of breath, dizziness, or extreme tiredness, stop the activity and rest. Please notify [facility] office if you experience any of these symptoms and they are not relieved by rest please call 911! The patient is recommended to follow in the device clinic in one week for a wound check and one month for a device check. Out-patient f/u in [address] Lara. - Diet and Activity Activity: other (as mentioned above..) Diet: low fat, low cholesterol - VTE Reasons for not Prescribing Prophylaxis: Not indicated-Anticoagulated or INR therapeutic Deep Vein Thrombosis/Pulmonary Embolism Present on Admission: No
--- NOTE | 2017-10-21 08:44 | Electrocardiograph Report ---
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
== END 2017-10-20 15:44 | disposition home or self-care (01) | DRG 244 ==
LOC: EMEROOARM 15:45 → ICNU 15:45 → SUATTDRO 10-18 01:34
PROVIDERS: ADMIT Student in an Organized Health Care Education/Training Program; ATTEND Internal Medicine

== ENCOUNTER 2019-09-28 15:32 | Observation (INO) ==
[2019-09-28] MEDS ORDERED: Ondansetron 4 MG/2 ML VIAL IVP ONE (15:40)
[2019-09-28] MEDS ORDERED: Prochlorperazine 10 MG/2 ML VIAL IVP STA (15:48)
[2019-09-28] MEDS ORDERED: niCARdipine 20 MG/200 ML MLS IVC SCH (16:02)
[2019-09-28 16:27] LABS: Basophils % 0.4 %; Hematocrit 44.1 % (35.3-44.9); Hemoglobin 13.9 g/dL (11.5-15.4); Immature Granulocytes % 0.4 % (0-4); Lymphocytes # 0.8 K/mcL (0.6-4.6); Lymphocytes % 8.6 %; Mean Corpuscular HGB Conc 31.5 g/dL (31.6-35.5); Mean Corpuscular Hemoglobin 27.5 pg (28.0-33.3); Mean Corpuscular Volume 87.2 fL (83.0-100.0); Mean Platelet Volume 11.7 fL (9.4-12.4); Monocytes # 0.2 K/mcL (0.0-1.3); Monocytes % 1.6 %; Neutrophils # 8.5 K/mcL (1.6-8.9); Platelet Count 162 K/mcL (140-400); Red Blood Count 5.06 M/mcL (3.82-4.97); Red Cell Distribution Width 13.3 % (11.5-14.5); White Blood Count 9.5 K/mcL (4.3-11.1)
[2019-09-28 16:42] LABS: Alanine Aminotransferase 10 Units/L (7-52); Albumin 4.7 g/dL (3.5-5.7); Albumin/Globulin Ratio 1.7 (1.1-2.2); Alkaline Phosphatase 78 Units/L (34-104); Aspartate Amino Transferase 18 Units/L (13-39); BUN/Creatinine Ratio 20 (6-26); Bilirubin,Total 0.7 mg/dL (0.3-1.0); Blood Urea Nitrogen 9 mg/dL (8-23); Calcium 9.2 mg/dL (8.6-10.3); Carbon Dioxide 24 mEq/L (23-29); Chloride 102 mEq/L (98-107); Globulin 2.7 g/dL (2.4-3.5); Glucose 133 mg/dL (70-105); Lipase 9 Units/L (11-82); Osmolality,Calculated 285 (280-300); Potassium 3.6 mEq/L (3.5-5.1); Sodium 137 mEq/L (136-145); Total Protein 7.4 g/dL (6.4-8.9); eGFR For African Americans > 60 (> 60); eGFR For Non-African Americans > 60 (> 60)
[2019-09-28 16:58] LABS: Bilirubin,Urine Negative (Negative); Blood,Urine Small (Negative); Clarity,Urine Clear (Clear); Color,Urine Light-Yellow (Yellow); Glucose,Urine (UA) 30 mg/dL (Normal); Ketones,Urine 60 mg/dL (Negative); Leukocyte Esterase,Urine Negative (Negative); Mucus,Urine Few per lpf (None-Few); Nitrite,Urine Negative (Negative); PH,Urine 7.5 pH Units (5.0-8.0); Protein,Urine 100 mg/dL (Neg-Trace); RBC,Urine 15-30 per hpf (0-3); Specific Gravity,Urine 1.017 (1.010-1.025); Squamous Epithelial Cell,Urine Few per hpf (None-Few); Urobilinogen,Urine Normal (Normal); WBC,Urine 0-3 per hpf (0-3)
[2019-09-28] MEDS ORDERED: *HR* HYDROcodone/Acet 5/325 mg TABLET PO PRN (17:37)
[2019-09-28] MEDS ORDERED: Naloxone 0.4 MG/ML INJ IVP PRN (17:37)
[2019-09-28] MEDS ORDERED: Acetaminophen 325 MG TABLET PO PRN (18:12)
[2019-09-28 18:16] LABS: Troponin I 0.05 ng/mL (< 0.04)
[2019-09-28 19:24] LABS: Adenovirus Not Detected (Not Detect); Bordetella Pertussis Not Detected (Not Detect); Chlamydophila pneumoniae Not Detected (Not Detect); Coronavirus 229E Not Detected (Not Detect); Coronavirus HKU1 Not Detected (Not Detect); Coronavirus NL63 Not Detected (Not Detect); Coronavirus OC43 Not Detected (Not Detect); Human Metapneumovirus Not Detected (Not Detect); Human Rhinovirus/Enterovirus Not Detected (Not Detect); Influenza A Subtype 2009 H1 Not Detected (Not Detect); Influenza B Not Detected (Not Detect); Mycoplasma pneumoniae Not Detected (Not Detect); Parainfluenza Virus 1 Not Detected (Not Detect); Parainfluenza Virus 2 Not Detected (Not Detect); Parainfluenza Virus 3 Not Detected (Not Detect); Parainfluenza Virus 4 Not Detected (Not Detect); Respiratory Syncytial Virus Not Detected (Not Detect)
[2019-09-28 19:26] LABS: SARS-CoV-2 Not Detected (Not Detect)
[2019-09-28] MEDS: lisinopriL 20 MG TABLET PO SCH (21:16)
[2019-09-28] MEDS: Apixaban 5 MG TABLET PO SCH (21:16)
[2019-09-28] MEDS: Furosemide 20 MG/2 ML VIAL IVP SCH (21:16)
[2019-09-29 00:57] LABS: Basophils % 0.5 %; Hematocrit 40.9 % (35.3-44.9); Hemoglobin 13.2 g/dL (11.5-15.4); Immature Granulocytes % 0.3 % (0-4); Lymphocytes # 1.5 K/mcL (0.6-4.6); Lymphocytes % 17.6 %; Mean Corpuscular HGB Conc 32.3 g/dL (31.6-35.5); Mean Corpuscular Hemoglobin 27.8 pg (28.0-33.3); Mean Corpuscular Volume 86.3 fL (83.0-100.0); Mean Platelet Volume 11.6 fL (9.4-12.4); Monocytes # 0.5 K/mcL (0.0-1.3); Monocytes % 5.8 %; Neutrophils # 6.6 K/mcL (1.6-8.9); Platelet Count 169 K/mcL (140-400); Red Blood Count 4.74 M/mcL (3.82-4.97); Red Cell Distribution Width 13.2 % (11.5-14.5); Segmented Neutrophils % 75.8 %; White Blood Count 8.8 K/mcL (4.3-11.1)
[2019-09-29 00:58] LABS: INR 1.7; Prothrombin Time 18.8 Seconds (9.4-12.1)
[2019-09-29 01:01] LABS: Activated Partial Thrombo Time 47.5 Seconds (26.0-36.0)
[2019-09-29 01:10] LABS: BUN/Creatinine Ratio 20 (6-26); Blood Urea Nitrogen 9 mg/dL (8-23); Calcium 8.9 mg/dL (8.6-10.3); Carbon Dioxide 23 mEq/L (23-29); Chloride 103 mEq/L (98-107); Chol/HDL Ratio 2.9 (0-4.9); Cholesterol 193 mg/dL (< 200); Glucose 102 mg/dL (70-105); HDL Cholesterol 67 mg/dL (40-59); LDL Cholesterol,Calculated 114 mg/dL (< 100); Magnesium 1.7 mg/dL (1.6-2.6); Osmolality,Calculated 287 (280-300); Potassium 3.4 mEq/L (3.5-5.1); Sodium 139 mEq/L (136-145); Triglycerides 62 mg/dL (< 150); eGFR For African Americans > 60 (> 60); eGFR For Non-African Americans > 60 (> 60)
[2019-09-29] MEDS: Furosemide 20 MG/2 ML VIAL IVP SCH (06:57)
[2019-09-29] MEDS: lisinopriL 20 MG TABLET PO SCH (07:26)
[2019-09-29] MEDS: Apixaban 5 MG TABLET PO SCH (07:26)
[2019-09-29 07:44] VITALS: BP 114/65
[2019-09-29] MEDS ORDERED: Aspirin Enteric Coated 81 MG Tablet PO SCH (09:00)
[2019-09-29] MEDS ORDERED: Cholecalciferol (D-3) 1,000 UNIT (25MCG) TABLET PO SCH (09:00)
[2019-09-29] MEDS ORDERED: lisinopriL 20 MG TABLET PO SCH (09:00)
[2019-09-30] MEDS ORDERED: Cyanocobalamin (B-12) 1,000 MCG TABLET PO SCH (09:00)
== END 2019-09-29 12:15 | disposition home or self-care (01) ==
LOC: EMEROOARM 15:32 → 2NNU 15:32 → SUATTDRO 19:39 → 2NNU 20:07
PROVIDERS: ADMIT Family Medicine; ATTEND Internal Medicine

== ENCOUNTER 2021-03-29 14:23 | Inpatient (IN) ==
[2021-03-29] MEDS ORDERED: DilTIAZem 50 MG/50 ML IV.SOLN IVC SCH (15:00)
[2021-03-29 15:40] LABS: Basophils # 0.1 K/mcL (0.0-0.2); Basophils % 1.2 %; Eosinophils # 0.1 K/mcL (0.0-0.6); Eosinophils % 1.5 %; Hematocrit 40.5 % (35.3-44.9); Hemoglobin 12.6 g/dL (11.5-15.4); Immature Granulocytes % 0.3 % (0-4); Lymphocytes # 3.4 K/mcL (0.6-4.6); Lymphocytes % 36.5 %; Mean Corpuscular HGB Conc 31.1 g/dL (31.6-35.5); Mean Corpuscular Hemoglobin 27.1 pg (28.0-33.3); Mean Corpuscular Volume 87.1 fL (83.0-100.0); Mean Platelet Volume 11.7 fL (9.4-12.4); Monocytes # 0.7 K/mcL (0.0-1.3); Monocytes % 7.5 %; Neutrophils # 4.9 K/mcL (1.6-8.9); Platelet Count 213 K/mcL (140-400); Red Blood Count 4.65 M/mcL (3.82-4.97); Red Cell Distribution Width 14.3 % (11.5-14.5); White Blood Count 9.3 K/mcL (4.3-11.1)
[2021-03-29 16:03] LABS: Alanine Aminotransferase 49 Units/L (7-52); Albumin 3.9 g/dL (3.5-5.7); Albumin/Globulin Ratio 1.8 (1.1-2.2); Alkaline Phosphatase 76 Units/L (34-104); Aspartate Amino Transferase 39 Units/L (13-39); BUN/Creatinine Ratio 25 (6-26); Bilirubin,Direct 0.1 mg/dL (0.0-0.2); Bilirubin,Indirect 0.5 mg/dL (0.0-1.0); Bilirubin,Total 0.6 mg/dL (0.3-1.0); Blood Urea Nitrogen 16 mg/dL (8-23); Calcium 9.1 mg/dL (8.6-10.3); Carbon Dioxide 23 mEq/L (23-29); Chloride 109 mEq/L (98-107); Globulin 2.2 g/dL (2.4-3.5); Glucose 96 mg/dL (70-105); Magnesium 1.9 mg/dL (1.6-2.6); Osmolality,Calculated 291 (280-300); Potassium 3.9 mEq/L (3.5-5.1); Sodium 140 mEq/L (136-145); Total Protein 6.1 g/dL (6.4-8.9); Troponin I < 0.03 ng/mL (< 0.04); eGFR For African Americans > 60 (> 60); eGFR For Non-African Americans > 60 (> 60)
[2021-03-29] MEDS ORDERED: *HR* Metoprolol 5 MG/5 ML VIAL IVP ONE (16:57)
[2021-03-29] MEDS ORDERED: 0.9 % Sodium Chloride 1,000 ML ONE (19:09)
[2021-03-29] MEDS ORDERED: 0.9 % Sodium Chloride 1,000 ML IV ONE (19:12)
[2021-03-29] MEDS ORDERED: niCARdipine 20 MG/200 ML MLS IVC SCH (19:15)
[2021-03-29 21:23] LABS: Influenza A PCR Negative (Negative); Influenza B PCR Negative (Negative); Resp. Syncytial Virus PCR Negative (Negative)
[2021-03-29] MEDS ORDERED: Amiodarone Premix 150 MG/100 ML BAG IVPB ONE (21:30)
[2021-03-29] MEDS ORDERED: Amiodarone Premix 360 MG/200 ML BAG IVC ONE (21:30)
[2021-03-29 21:31] LABS: SARS-CoV-2 by PCR (In House) Negative (Negative)
[2021-03-29] MEDS ORDERED: Melatonin 3 MG TABLET PO PRN (23:29)
[2021-03-29] MEDS ORDERED: Acetaminophen 325 MG TABLET PO PRN (23:29)
[2021-03-29] MEDS ORDERED: Ondansetron 4 MG/2 ML VIAL IVP PRN (23:29)
[2021-03-29] MEDS ORDERED: Naloxone 0.4 MG/ML INJ IVP PRN (23:29)
[2021-03-30] MEDS: DilTIAZem 50 MG/50 ML IV.SOLN IVC SCH ×2 (00:41→05:06)
[2021-03-30] MEDS: Apixaban 5 MG TABLET PO SCH ×3 (01:57→20:45)
[2021-03-30] MEDS ORDERED: Amiodarone Premix 360 MG/200 ML BAG IVC SCH (03:31)
[2021-03-30 06:29] LABS: INR 2.2; Prothrombin Time 24.3 Seconds (9.4-12.1)
[2021-03-30 07:30] LABS: BUN/Creatinine Ratio 31 (6-26); Blood Urea Nitrogen 18 mg/dL (8-23); Calcium 8.3 mg/dL (8.6-10.3); Carbon Dioxide 14 mEq/L (23-29); Chloride 109 mEq/L (98-107); Glucose 95 mg/dL (70-105); Osmolality,Calculated 286 (280-300); Potassium 4.5 mEq/L (3.5-5.1); Sodium 137 mEq/L (136-145); eGFR For African Americans > 60 (> 60); eGFR For Non-African Americans > 60 (> 60)
[2021-03-30] MEDS: Aspirin Enteric Coated 81 MG Tablet PO SCH (08:13)
[2021-03-30] MEDS ORDERED: Breztri Aerosphere Inhaler IH SCH (09:00)
[2021-03-30 10:12] LABS: Basophils # 0.1 K/mcL (0.0-0.2); Basophils % 0.8 %; Eosinophils # 0.1 K/mcL (0.0-0.6); Eosinophils % 0.9 %; Hematocrit 40.2 % (35.3-44.9); Hemoglobin 12.8 g/dL (11.5-15.4); Immature Granulocytes % 0.9 % (0-4); Lymphocytes # 3.7 K/mcL (0.6-4.6); Lymphocytes % 31.5 %; Mean Corpuscular HGB Conc 31.8 g/dL (31.6-35.5); Mean Corpuscular Hemoglobin 27.3 pg (28.0-33.3); Mean Corpuscular Volume 85.7 fL (83.0-100.0); Monocytes # 0.7 K/mcL (0.0-1.3); Monocytes % 6.1 %; Neutrophils # 7.1 K/mcL (1.6-8.9); Platelet Count 186 K/mcL (140-400); Red Blood Count 4.69 M/mcL (3.82-4.97); Red Cell Distribution Width 14.5 % (11.5-14.5); Segmented Neutrophils % 59.8 %; White Blood Count 11.9 K/mcL (4.3-11.1)
[2021-03-30] MEDS ORDERED: *HR* Digoxin 0.5 MG/2 ML AMPUL IVP ONE (10:50)
[2021-03-30] MEDS ORDERED: Furosemide 20 MG/2 ML VIAL IVP ONE (11:27)
[2021-03-30] MEDS: *HR* Digoxin 0.5 MG/2 ML AMPUL IVP SCH ×2 (16:43→22:00)
[2021-03-30] MEDS ORDERED: Budesonide/Formoterol 160/4.5 1 PUFF INH IH SCH (22:00)
[2021-03-31] MEDS: Apixaban 5 MG TABLET PO SCH ×2 (07:49→19:56)
[2021-03-31] MEDS: Aspirin Enteric Coated 81 MG Tablet PO SCH (07:49)
[2021-03-31] MEDS: Tiotropium 10 INH DOSE IH SCH (10:55)
[2021-03-31] MEDS: *HR* Digoxin 0.125 MG TABLET PO SCH (11:51)
[2021-04-01 04:15] LABS: Basophils # 0.1 K/mcL (0.0-0.2); Basophils % 0.9 %; Eosinophils # 0.2 K/mcL (0.0-0.6); Eosinophils % 2.3 %; Hematocrit 37.6 % (35.3-44.9); Hemoglobin 11.4 g/dL (11.5-15.4); Immature Granulocytes % 0.3 % (0-4); Lymphocytes # 2.8 K/mcL (0.6-4.6); Lymphocytes % 35.6 %; Mean Corpuscular HGB Conc 30.3 g/dL (31.6-35.5); Mean Corpuscular Hemoglobin 26.8 pg (28.0-33.3); Mean Corpuscular Volume 88.5 fL (83.0-100.0); Mean Platelet Volume 11.7 fL (9.4-12.4); Monocytes # 0.6 K/mcL (0.0-1.3); Monocytes % 7.6 %; Neutrophils # 4.2 K/mcL (1.6-8.9); Platelet Count 209 K/mcL (140-400); Red Blood Count 4.25 M/mcL (3.82-4.97); Red Cell Distribution Width 14.2 % (11.5-14.5); Segmented Neutrophils % 53.3 %; White Blood Count 7.8 K/mcL (4.3-11.1)
[2021-04-01 04:26] LABS: BUN/Creatinine Ratio 19 (6-26); Blood Urea Nitrogen 11 mg/dL (8-23); Calcium 8.5 mg/dL (8.6-10.3); Carbon Dioxide 29 mEq/L (23-29); Chloride 106 mEq/L (98-107); Glucose 93 mg/dL (70-105); Magnesium 1.8 mg/dL (1.6-2.6); Osmolality,Calculated 287 (280-300); Potassium 4.1 mEq/L (3.5-5.1); Sodium 139 mEq/L (136-145); eGFR For African Americans > 60 (> 60); eGFR For Non-African Americans > 60 (> 60)
[2021-04-01] MEDS: Tiotropium 10 INH DOSE IH SCH (07:40)
[2021-04-01] MEDS: Aspirin Enteric Coated 81 MG Tablet PO SCH (10:29)
[2021-04-01] MEDS: *HR* Digoxin 0.125 MG TABLET PO SCH (10:29)
[2021-04-01] MEDS: Apixaban 5 MG TABLET PO SCH ×2 (10:30→20:34)
[2021-04-02 05:22] LABS: Basophils # 0.1 K/mcL (0.0-0.2); Basophils % 1.3 %; Eosinophils # 0.2 K/mcL (0.0-0.6); Eosinophils % 2.4 %; Hematocrit 37.8 % (35.3-44.9); Hemoglobin 11.7 g/dL (11.5-15.4); Immature Granulocytes % 0.3 % (0-4); Lymphocytes # 2.6 K/mcL (0.6-4.6); Lymphocytes % 33.1 %; Mean Corpuscular Hemoglobin 27.8 pg (28.0-33.3); Mean Corpuscular Volume 89.8 fL (83.0-100.0); Mean Platelet Volume 11.5 fL (9.4-12.4); Monocytes # 0.7 K/mcL (0.0-1.3); Monocytes % 8.5 %; Neutrophils # 4.3 K/mcL (1.6-8.9); Platelet Count 209 K/mcL (140-400); Red Blood Count 4.21 M/mcL (3.82-4.97); Red Cell Distribution Width 14.2 % (11.5-14.5); Segmented Neutrophils % 54.4 %; White Blood Count 7.9 K/mcL (4.3-11.1)
[2021-04-02 05:43] LABS: BUN/Creatinine Ratio 24 (6-26); Blood Urea Nitrogen 16 mg/dL (8-23); Calcium 8.7 mg/dL (8.6-10.3); Carbon Dioxide 31 mEq/L (23-29); Chloride 106 mEq/L (98-107); Glucose 92 mg/dL (70-105); Magnesium 1.9 mg/dL (1.6-2.6); Osmolality,Calculated 293 (280-300); Potassium 4.1 mEq/L (3.5-5.1); Sodium 141 mEq/L (136-145); eGFR For African Americans > 60 (> 60); eGFR For Non-African Americans > 60 (> 60)
[2021-04-02] MEDS: Tiotropium 10 INH DOSE IH SCH (07:18)
[2021-04-02] MEDS ORDERED: DilTIAZem CD (24hr) 120 MG CAP.ER.24H PO SCH (09:00)
[2021-04-02] MEDS: Apixaban 5 MG TABLET PO SCH ×2 (10:01→20:05)
[2021-04-02] MEDS: *HR* Digoxin 0.125 MG TABLET PO SCH (10:02)
[2021-04-02] MEDS: Aspirin Enteric Coated 81 MG Tablet PO SCH (10:02)
[2021-04-03 06:24] LABS: Basophils # 0.1 K/mcL (0.0-0.2); Basophils % 0.9 %; Eosinophils # 0.2 K/mcL (0.0-0.6); Eosinophils % 2.1 %; Hemoglobin 12.5 g/dL (11.5-15.4); Immature Granulocytes % 0.5 % (0-4); Mean Corpuscular HGB Conc 30.5 g/dL (31.6-35.5); Mean Corpuscular Hemoglobin 27.1 pg (28.0-33.3); Mean Corpuscular Volume 88.7 fL (83.0-100.0); Monocytes # 0.6 K/mcL (0.0-1.3); Monocytes % 7.3 %; Neutrophils # 5.5 K/mcL (1.6-8.9); Platelet Count 205 K/mcL (140-400); Red Blood Count 4.62 M/mcL (3.82-4.97); Red Cell Distribution Width 14.3 % (11.5-14.5); Segmented Neutrophils % 65.2 %; White Blood Count 8.5 K/mcL (4.3-11.1)
[2021-04-03 06:43] LABS: BUN/Creatinine Ratio 27 (6-26); Blood Urea Nitrogen 12 mg/dL (8-23); Calcium 7.7 mg/dL (8.6-10.3); Carbon Dioxide 27 mEq/L (23-29); Chloride 110 mEq/L (98-107); Glucose 93 mg/dL (70-105); Magnesium 1.6 mg/dL (1.6-2.6); Osmolality,Calculated 291 (280-300); Potassium 3.5 mEq/L (3.5-5.1); Sodium 141 mEq/L (136-145); eGFR For African Americans > 60 (> 60); eGFR For Non-African Americans > 60 (> 60)
[2021-04-03] MEDS: DilTIAZem CD (24hr) 180 MG CAP.ER.24H PO SCH (08:15)
[2021-04-03] MEDS: Apixaban 5 MG TABLET PO SCH ×2 (08:15→20:57)
[2021-04-03] MEDS: Aspirin Enteric Coated 81 MG Tablet PO SCH (08:15)
[2021-04-03] MEDS: *HR* Digoxin 0.125 MG TABLET PO SCH (08:15)
[2021-04-03] MEDS: Tiotropium 10 INH DOSE IH SCH (08:24)
[2021-04-03] MEDS ORDERED: Metoprolol 100 MG TABLET PO SCH (09:00)
[2021-04-03] MEDS: Furosemide 20 MG/2 ML VIAL IVP SCH (15:13)
[2021-04-03] MEDS: Metoprolol XL (24 HR) Succ 50 MG TAB.ER.24H PO SCH (20:57)
[2021-04-04 03:04] LABS: Basophils # 0.1 K/mcL (0.0-0.2); Basophils % 1.1 %; Eosinophils # 0.2 K/mcL (0.0-0.6); Hematocrit 40.8 % (35.3-44.9); Hemoglobin 12.7 g/dL (11.5-15.4); Immature Granulocytes % 0.4 % (0-4); Lymphocytes # 3.6 K/mcL (0.6-4.6); Lymphocytes % 36.5 %; Mean Corpuscular HGB Conc 31.1 g/dL (31.6-35.5); Mean Corpuscular Hemoglobin 27.4 pg (28.0-33.3); Mean Corpuscular Volume 87.9 fL (83.0-100.0); Mean Platelet Volume 11.1 fL (9.4-12.4); Monocytes # 0.7 K/mcL (0.0-1.3); Monocytes % 7.2 %; Neutrophils # 5.2 K/mcL (1.6-8.9); Platelet Count 219 K/mcL (140-400); Red Blood Count 4.64 M/mcL (3.82-4.97); Red Cell Distribution Width 14.3 % (11.5-14.5); Segmented Neutrophils % 52.8 %; White Blood Count 9.8 K/mcL (4.3-11.1)
[2021-04-04 03:22] LABS: BUN/Creatinine Ratio 22 (6-26); Blood Urea Nitrogen 11 mg/dL (8-23); Calcium 8.7 mg/dL (8.6-10.3); Carbon Dioxide 31 mEq/L (23-29); Chloride 106 mEq/L (98-107); Glucose 92 mg/dL (70-105); Osmolality,Calculated 291 (280-300); Sodium 141 mEq/L (136-145); eGFR For African Americans > 60 (> 60); eGFR For Non-African Americans > 60 (> 60)
[2021-04-04] MEDS: Furosemide 20 MG/2 ML VIAL IVP SCH (08:12)
[2021-04-04] MEDS: Metoprolol XL (24 HR) Succ 50 MG TAB.ER.24H PO SCH ×2 (08:12→20:12)
[2021-04-04] MEDS: Aspirin Enteric Coated 81 MG Tablet PO SCH (08:12)
[2021-04-04] MEDS: Apixaban 5 MG TABLET PO SCH ×2 (08:12→20:12)
[2021-04-04] MEDS: DilTIAZem CD (24hr) 180 MG CAP.ER.24H PO SCH (08:13)
[2021-04-04] MEDS: *HR* Digoxin 0.125 MG TABLET PO SCH (08:13)
[2021-04-04] MEDS: Tiotropium 10 INH DOSE IH SCH (08:24)
[2021-04-05 05:14] LABS: Basophils # 0.1 K/mcL (0.0-0.2); Basophils % 0.9 %; Eosinophils # 0.1 K/mcL (0.0-0.6); Eosinophils % 1.9 %; Hemoglobin 12.5 g/dL (11.5-15.4); Immature Granulocytes % 0.3 % (0-4); Lymphocytes # 2.1 K/mcL (0.6-4.6); Lymphocytes % 28.3 %; Mean Corpuscular HGB Conc 32.9 g/dL (31.6-35.5); Mean Corpuscular Hemoglobin 28.7 pg (28.0-33.3); Mean Corpuscular Volume 87.2 fL (83.0-100.0); Mean Platelet Volume 11.1 fL (9.4-12.4); Monocytes # 0.5 K/mcL (0.0-1.3); Monocytes % 7.2 %; Neutrophils # 4.6 K/mcL (1.6-8.9); Platelet Count 184 K/mcL (140-400); Red Blood Count 4.36 M/mcL (3.82-4.97); Red Cell Distribution Width 13.9 % (11.5-14.5); Segmented Neutrophils % 61.4 %; White Blood Count 7.5 K/mcL (4.3-11.1)
[2021-04-05 05:33] LABS: BUN/Creatinine Ratio 20 (6-26); Blood Urea Nitrogen 10 mg/dL (8-23); Calcium 8.7 mg/dL (8.6-10.3); Carbon Dioxide 30 mEq/L (23-29); Chloride 105 mEq/L (98-107); Glucose 92 mg/dL (70-105); Magnesium 1.9 mg/dL (1.6-2.6); Osmolality,Calculated 289 (280-300); Sodium 140 mEq/L (136-145); eGFR For African Americans > 60 (> 60); eGFR For Non-African Americans > 60 (> 60)
[2021-04-05] MEDS: Tiotropium 10 INH DOSE IH SCH (07:36)
[2021-04-05] MEDS: Furosemide 20 MG/2 ML VIAL IVP SCH (07:51)
[2021-04-05] MEDS: Aspirin Enteric Coated 81 MG Tablet PO SCH (07:51)
[2021-04-05] MEDS: *HR* Digoxin 0.125 MG TABLET PO SCH (07:51)
[2021-04-05] MEDS: Metoprolol XL (24 HR) Succ 50 MG TAB.ER.24H PO SCH (07:51)
[2021-04-05] MEDS: Apixaban 5 MG TABLET PO SCH (07:51)
[2021-04-05] MEDS ORDERED: DilTIAZem CD (24hr) 240 MG CAP.ER.24H PO SCH (09:00)
[2021-04-05 11:24] VITALS: BP 137/78; PULSE 97; TEMP 98.1; O2SAT 95
== END 2021-04-05 14:02 | disposition home or self-care (01) | DRG 308 ==
LOC: 3NENU 14:23 → EMEROOARM 14:23 → SUATTDRO 03-30 00:34 → 3NENU 03-30 01:15 → SUATTDRO 03-30 11:44
PROVIDERS: ADMIT Internal Medicine; ATTEND Family Medicine